=== PATIENT | female | born 1975 | race Caucasian/White ===

== ENCOUNTER → 2020-06-14 08:15 | Outpatient (CLI) | payer BC, SELFPAY ==
[2020-06-10 08:29] VITALS: BMI 23.0
--- NOTE | 2020-06-14 08:16 | CT_ITS ---
STUDY: CT ABDOMEN AND PELVIS WITH CONTRAST REASON FOR EXAM: Female, 45 years old. FREQUENT URINATION, PELVIC PAIN, BOWEL CHANGES X 6 WEEKS RADIATION DOSAGE (If Supplied By Facility): CTDIvol = ( 10.58 ) mGy, DLP = ( 691.09 ) mGycm TECHNIQUE: Transaxial images were obtained from the dome of the diaphragm to the symphysis pubis with oral contrast. 100 CC ISOVUE 300, READI-CAT ORAL CONTRAST was administered. Sagittal and coronal images were reconstructed. Individualized dose optimization techniques were used for this CT. COMPARISON: None. FINDINGS: The visualized lung bases are unremarkable. The visualized portions of the heart are within normal limits. Normal liver. Normal gallbladder and extrahepatic biliary system. Normal spleen. Normal pancreas. Normal bilateral adrenal glands. Normal right kidney. Normal left kidney. Normal visualized stomach. Normal small intestine. Large amount of fecal material is seen in the colon. The appendix is visualized and appears normal. Normal abdominal aorta. Normal inferior vena cava. Normal retroperitoneum. Normal urinary bladder. Follicles are seen in both ovaries. There is a 3.7 centimeters x 2.9 cm round hypodensity in the cervix. This may represent fibroid. The uterus is retroverted. Clinical correlation is recommended. Normal abdominal wall. Normal osseous structures. CT/Abdomen/Pelvis WITH Contrast IMPRESSION: 3.7 cm x 2.9 cm rounded soft tissue density in the cervical region of the cervix. This may represent a fibroid. A neoplastic process cannot be ruled out. Clinical correlation is recommended. Electronically Signed: Ashish Jacobson, at 12:30 EDT , Service support ,
== END ==
LOC: CT 08:16
PROVIDERS: PCP Nurse Practitioner Family; Referring Provider Internal Medicine Medical Oncology; Visit Provider Internal Medicine Medical Oncology
DX: R10.9 Unspecified abdominal pain (principal); R93.89 Abnormal findings on diagnostic imaging of other specified body structures; R42 Dizziness and giddiness; E03.9 Hypothyroidism, unspecified
CPT/HCPCS: 74177; Q9967

== ENCOUNTER → 2020-06-18 09:53 | Outpatient (CLI) | payer BC, SELFPAY ==
[2020-06-10 08:29] VITALS: BMI 23.0
--- NOTE | 2020-06-18 09:54 | ECHODONC_ITS ---
Reason For Study: DIZZINESS Procedure This was a 2D Doppler, Color Flow transthoracic echocardiogram. Myocardial strain analysis was performed in this exam to aid in the assessment of cardiac function. Exam performed in department. Left Ventricle Normal LV size. Left ventricular systolic function is normal. The estimated ejection fraction is 55 %. No regional wall motion abnormalities noted. Right Ventricle Normal RV size. Normal systolic function. Atria Normal left atrium. Normal right atrium. Mitral Valve Normal mitral valve. Tricuspid Valve Normal tricuspid valve. Mild (1+) tricuspid valve insufficiency. Pulmonary artery systolic pressure is 15 mmHg. Aortic Valve Normal aortic valve. Trisinus/trileaflet aortic valve. Pulmonic Valve Normal pulmonic valve. Great Vessels Normal aortic root. The pulmonary artery is normal size. Normal inferior vena cava. Pericardium/Pleural No pericardial effusion. MMode/2D Measurements & Calculations LVIDd: 4.3 cm IVSd: 0.66 cm Ao root diam: 2.6 cm LVIDs: 3.1 cm LVPWd: 0.60 cm RVDd: 3.4 cm FS: 27.1 % LAV(MOD-bp): 31.5 ml LA A4 area: 13.6 cm2 LA dimension(2D): 2.7 cm LAV(MOD-bp) Indexed: 20.7 ml/m2 LAV(MOD-sp2): 29.1 ml LAV(MOD-sp4): 32.1 ml RA A4 area: 9.4 cm2 Time Measurements MV dec time: 0.24 sec Doppler Measurements & Calculations MV E max adebayo: 68.3 cm/sec Lat Peak E' Adebayo: 14.3 cm/sec Med Peak E' Adebayo: 12.9 cm/sec MV A max adebayo: 40.5 cm/sec E/E' lat: 4.8 E/E' med: 5.3 MV E/A: 1.7 Ao V2 max: 114.8 cm/sec LV V1 max: 97.2 cm/sec PA V2 max: 95.2 cm/sec Ao max P.3 mmHg LV V1 max P.8 mmHg TR max adebayo: 166.9 cm/sec TR max P.3 mmHg Interpretation Summary Normal LV size. Left ventricular systolic function is normal. The estimated ejection fraction is 55 %. Mild (1+) tricuspid valve insufficiency. The global longitudinal strain is normal. The global longitudinal strain = -20.5 % (normal). Ordering Physician: Haim Nye Referring Physician: OSVALDO DE LA FUENTE Performed By: Virginia Vo, RAJATCS, RVT
--- NOTE | 2020-06-18 09:54 | EKGRS_ITS ---
Test Reason : PRE OP Blood Pressure : / mmHG Vent. Rate : 062 BPM Atrial Rate : 062 BPM P-R Int : 112 ms QRS Dur : 082 ms QT Int : 384 ms P-R-T Axes : 045 063 070 degrees QTc Int : 389 ms Normal sinus rhythm Nonspecific T wave abnormality Abnormal ECG Confirmed by ALEX GARCIA, BRIANNA ([id number]), publishing editor ONESIMO ZAMUDIO ([id number]) on 06/20/2020 11:35:48 AM Referred By: Haim Nye Confirmed By:BRIANNA JOHNSON MD
== END ==
LOC: CVS 09:54
PROVIDERS: PCP Nurse Practitioner Family; Referring Provider Internal Medicine Medical Oncology; Visit Provider Internal Medicine Medical Oncology
DX: R42 Dizziness and giddiness (principal); R10.9 Unspecified abdominal pain
CPT/HCPCS: 93005; 93306; 93356

== ENCOUNTER 2020-06-26 08:23 | Day surgery (SDC) | payer BC, SELFPAY ==
--- NOTE | 2020-06-18 01:14 | HP_ITS ---
Intake Vital Signs 06/18/20 BMI 23.0 06/18/20 Height 5 ft 1 in 06/18/20 Weight: 123 lb 8 oz 06/18/20 BMI 23.3 06/18/20 BP 94/61 06/18/20 Blood Pressure Location Rt brachial 06/18/20 Position Sitting 06/18/20 Respiration 18 06/18/20 Pulse 82 06/18/20 Pulse Source Monitor 06/18/20 Temp 97.8 F 06/18/20 Temp Source Temporal 06/18/20 Pulse Oximetry (%) 97 06/18/20 Oxygen Delivery Method room air Intake Visit Reasons: Upper & Lower Scope Chief Complaint: positive hemoccult stool/EGD and C-Scope consult Certified Anesthesiologist Assistant Required: No Accompanied by: Is patient in pain?: Yes Allergies latex Allergy (Verified 06/18/20 13:05) Swelling Medications Multivitamins,Therapeutic [Multivitamin] 1 tab PO DAILY 06/04/20 [History Confirmed 06/18/20] Cholecalciferol (Vitamin D3) [Vitamin D3] 5,000 unit PO DAILY 06/10/20 [History Confirmed 06/18/20] Duloxetine Hcl [Cymbalta] 30 mg PO DAILY 06/10/20 [History Confirmed 06/18/20] Erenumab-Aooe [Aimovig Autoinjector] 70 mg SQ QMONTH 06/10/20 [History Confirmed 06/18/20] Levothyroxine [Synthroid] 25 mcg PO DAILY 06/10/20 [History Confirmed 06/18/20] Magnesium 200 mg PO DAILY 06/10/20 [History Confirmed 06/18/20] PFSH Medical History Hematest positive stools (Acute) Hypothyroidism (Acute) Migraine headache (Acute) Mononucleosis (Acute) Surgical History No history of previous surgery (Acute) Family History Father Abuse, drug or alcohol Depression Grandmother Heart disease MATERNAL Osteoarthritis PATERNAL Mother Depression Asthma Sister Depression Aunt Depression MATERNAL Grandfather Diabetes PATERNAL Lung cancer PATERNAL Grandfather Lung cancer MATERNAL Social History (Updated 09/01/20 @ 13:[address] Amadou Malik MD) Smoking Status: Never smoker alcohol intake: never substance use type: marijuana HPI HPI Surgical H&P: Yes HPI: MATEUSZ SEAY, is a 45 F who presents to the office today for Upper and lower endoscopy. Patient has had Hemoccult tests that were positive x3. She has been having significant nausea and some vomiting. She is also been complaining of left lower quadrant abdominal pain. 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 She has been on Xarelto for short period of time but this is been discussed continued. She says for the last 6 weeks she just has not been feeling well she has been weak she is been having dizzy spells and her associated nausea. She reports that she has had tumor markers tested but these have been negative. Recently she has had a CAT scan of the abdomen and pelvis which showed a 3.7 x 2.9 round hypodensity in the cervix which may represent either a fibroid or possibly malignancy. ROS General General: Yes weight change and fatigue; no appetite, colon cancer, breast cancer or weakness HEENT HEENT: No difficulty swallowing, eye injury, eye surgery, swollen glands or hoarseness Endo Endocrine: Yes thyroid disease; no diabetes mellitus, thyroid cancer, Hair loss, heat intolerance or cold intolerance Skin Skin: No rash or changing moles Breast Breast: No left breast lump, right breast lump, nipple discharge, breast pain, abnormal mammogram, abnormal US or breast enlargement Musc Musculoskeletal: No back problems, arthritis, rheumatoid arthritis, gout or joint pain Cardio Cardiovascular: Yes murmur; no pacemaker, heart disease, atrial fibrillation, high blood pressure, heart attack, heart stent, palpitations, shortness of breat with exertion or chest pain Psych Psychiatric: No depression, anxiety or hearing voices Resp Respiratory: Yes shortness of breath, No sleep apnea, No cough, No COPD, No asthma, No emphysema, No wheezing Gastro Gastrointestinal: Yes abdominal pain, Yes nausea or vomiting, Yes diarrhea, Yes constipation, Yes blood in stool, Yes acid reflux, No hemorrhoids, No ulcers, No gallbladder problem, No black,tarry stools Alexandr Hematologic: No blood thinners, No blood disorders, Yes bleeding, No anemia, No blood clots Neuro Neurologic: No system reviewed and no additional complaints, except as docu, No as per HPI, No abnormal walking, No abnormal hearing, No abnormal movements, No abnormal speech, No behavioral changes, No burning sensations, No confusion, No seizure-like activity, No unsteadiness, No dizziness, No localized weakness, No frequent falls, No headache(s), No lack of coordination, No loss of vision, No memory loss, No numbness, No other visual disturbances, No radiating pain, No restless legs, No sensory deficit, No fainting, No tingling, No tremor(s), No weakness, No other Exam Const General: no acute distress, well developed, well hydrated Orientation: oriented to person, oriented to place, oriented to time [facility] Head: normocephalic, atraumatic Ears: external ears normal Mouth: moist mucous membranes Eyes Sclera: sclerae normal Pupils: normal by confrontation Neck Neck: no lymphadenopathy noted Neck mass: No Thyroid: thyroid normal, symmetrical Chest Chest palpation & inspection: normal inspection of the chest Breast Palpation: No nipple discharge Resp Effort & Inspection: normal respiratory effort Auscultation: clear to auscultation bilaterally Percussion: percussion normal Cardio Rate: regular rate Rhythm: regular rhythm Heart Sounds: murmur GI Palpation: soft, no hepatosplenomegaly, no masses, nontender Rectal Exam: other Other: Rectal exam deferred. Extrem General: normal to inspection, no clubbing, cyanosis or edema Assessment & Plan Problems 1. Heme positive stool R19.5 2. Nausea R11.0 3. Weight loss R63.4 4. Dizziness R42 Plan I have discussed the above with the patient. I have offered the patient colonoscopy As well as an EGD for evaluation. I have explained the risks/benefits of the procedure and described the procedure. I have discussed the risks with the patient, including but not limited to: infection, bleeding, perforation of the GI tract requiring emergency surgery, inability to complete the procedure, injury to any internal organs, complications of anesthesia, etc. - the patient understands and agrees to proceed. I have answered all the patient's questions to the patient's satisfaction and the patient has no further questions. The patient has been given instructions for the colon cleansing preparation. Coding Level of Care Code Off vis,new,level 3 Diagnoses Heme positive stool R19.5 Nausea R11.0 Weight loss R63.4 Dizziness R42 COVID (Procedure Consent) Procedure Criteria Procedure Criteria: Yes Elective The surgeon/proceduralist and patient have discussed in detail the risk of exposure to and/or potential harm posed by the COVID-19 virus with having a surgery/procedure at this time versus the risk of? delaying the surgery/procedure. It is not possible to know either the risk of delaying the surgery or procedure or chance of getting an infection with perfect accuracy, but a joint decision was made between the patient and the surgeon/proceduralist ?to proceed at this time with the scheduled surgery/procedure as indicated on the consent form. 06/18/20 1314 <Electronically signed by Amadou ansari MD> Date _ Amadou Malik MD I have re-examined the patient. There are no clinical changes since date of exam.
[2020-06-18 13:06] VITALS: BMI 23.0
[2020-06-19 13:30] VITALS: BMI 23.1
[2020-06-26 08:49] VITALS: BP 104/74; PULSE 89; RESP 16; TEMP 36.8; O2SAT 99; BMI 22.5
[2020-06-26] MEDS: Lactated Ringers 1,000 ML 100 ML IV (09:01)
[2020-06-26 09:02] LABS: Internal QC Validated? YES +Cl - CLEAR BKGD; Pregnancy, Urine Negative Negative
--- NOTE | 2020-06-26 09:30 | IMM_PTH ---
PATIENT: MATEUSZ SEAY LOC: EN U#:[id number] AGE/SX: 45/F ROOM: RE06/26/[address]: Dr. Amadou Malik MD : 1975 BED: DIS: 06/26/2020 SPEC #: [id number] RECD: 06/26/20 13:32 STATUS: TRELL REQ #: [id number] LEV: 06/26/20 09:[address]: Amadou Malik DEPT: IMMUNOHISTOCHEMISTRY RECD BY: Roslyn Gutierrez ENTERED: 06/26/20 13:33 SP TYPE: IMMUNO OTHR DR: Cindy Guzman, NIGHT SUPERVISOR-C Tissues: Stomach, NOS Procedures: H Pylori (initial) PHYSICIAN & INSTITUTION [place] [id number] SPECIMEN INFORMATION: Tissue Source: Antrum biopsy Clinical Info: Heme-positive stool, nausea, weight loss Specimen Number: [id number] CPT code: 54881 METHODOLOGY: Deparaffinized sections of prefer/formalin-fixed tissue or PAP/DQ stained slides are incubated with monoclonal/polyclonal antibodies/oligonucleotide probes. Localization is made via biotin free immunoperoxidase method. Appropriate controls are performed and reacted as expected. Results on target cell population are indicated in the following table: RESULTS: ANTIBODY / CLONE RESULT H Pylori (polyclonal) negative These tests were developed and their performance characteristics determined by [facility]. They may not have been cleared or approved by the U.S. Food and Drug Administration. The FDA has determined that such clearance or approval is not necessary. INTERPRETATION: Antrum biopsy: Negative for Helicobacter pylori organisms. AM:derrek 06/27/20
--- NOTE | 2020-06-26 09:30 | COLBX_PTH ---
PATIENT: MATEUSZ SEAY LOC: EN U#:[id number] AGE/SX: 45/F ROOM: RE06/26/[address]: Dr. Amadou Malik MD : 1975 BED: DIS: 06/26/2020 SPEC #: [id number] RECD: 06/26/20 10:05 STATUS: TRELL ZACH #: [id number] LEV: 06/26/20 09:[address]: Amadou Malik DEPT: SURGICAL PATHOLOGY RECD BY: April Baltazar ENTERED: 06/26/20 13:30 SP TYPE: COLON BX OTHR DR: Cindy Guzman, GUARD ENTRANCE REGISTRAR-C Tissues: Gastric mucous membrane Procedures: Surgery Specimen Level IV HEADER OPERATION: Colonoscopy, EGD ([facility] [place]) PRE-OP DIAGNOSIS: Heme-positive stool, nausea, weight loss TISSUE SUBMITTED: Antrum biopsy for histo and H. pylori MICROSCOPIC DIAGNOSIS Gastric antrum, biopsy: Mild chronic gastritis. See comment. AM:derrek 06/27/20 COMMENT The results of immunohistochemistry for Helicobacter pylori will be reported separately ([id number]). MICROSCOPIC DESCRIPTION Slides are reviewed. GROSS DESCRIPTION Received in fixative is one container labeled with the patient's name and designated antrum biopsy. The specimen consists of one irregular fragment of light smith soft tissue that measures 0.5 x 0.5 x 0.1 cm. The specimen is totally submitted in one cassette. / AM:derrek 06/26/20 TC:3 CPT: 33224
[2020-06-26 09:40] VITALS: BP 104/74; BP 90/43; PULSE 81; RESP 16; TEMP 36.6; O2SAT 100
--- NOTE | 2020-06-26 09:40 | OP.EGD_ITS ---
Patient Name: Shanice Soares Procedure Date: 06/26/2020 9:08 AM Date of : 1975 Age: 45 Procedure: Upper GI endoscopy Indications: Abdominal pain in the left lower quadrant, Heme positive stool, Nausea with vomiting Providers: Amadou Malik MD Referring MD: Amadou Malik MD Medicines: See the Anesthesia note for documentation of the administered medications Patient Profile: This is a 45 year old female. Refer to note in patient chart for documentation of history and physical. Complications: No immediate complications. Procedure: Pre-Anesthesia Assessment: - Prior to the procedure, a History and Physical was performed, and patient medications and allergies were reviewed. The patient's tolerance of previous anesthesia was also reviewed. The risks and benefits of the procedure and the sedation options and risks were discussed with the patient. All questions were answered, and informed consent was obtained. Prior Anticoagulants: The patient has taken no previous anticoagulant or antiplatelet agents. ASA Grade Assessment: II - A patient with mild systemic disease. After reviewing the risks and benefits, the patient was deemed in satisfactory condition to undergo the procedure. After obtaining informed consent, the endoscope was passed under direct vision. Throughout the procedure, the patient's blood pressure, pulse, and oxygen saturations were monitored continuously. The Endoscope was introduced through the mouth, and advanced to the second part of duodenum. The upper GI endoscopy was accomplished without difficulty. The patient tolerated the procedure well. Scope In: 9:17:27 AM Scope Out: 9:19:44 AM Total Procedure Duration Time 0 hours 2 minutes 17 seconds Findings: The Z-line was regular and was found 40 cm from the incisors. No biopsies or other specimens were collected for this exam. Localized mildly erythematous mucosa without bleeding was found in the prepyloric region of the stomach. Biopsies were taken with a cold forceps for Helicobacter pylori testing. The examined duodenum was normal. No biopsies or other specimens were collected for this exam. Impression: - Z-line regular, 40 cm from the incisors. No specimens collected. - Erythematous mucosa in the prepyloric region of the stomach. Biopsied. - Normal examined duodenum. No specimens collected. Recommendation: - Discharge patient to home. - Resume previous diet. - Continue present medications. - Await pathology results. - Repeat upper endoscopy (date not yet determined) for surveillance. - Return to primary care physician in 1 week. Procedure Code(s): --- Professional --- 55587, Esophagogastroduodenoscopy, flexible, transoral; with biopsy, single or multiple Diagnosis Code(s): --- Professional --- K31.89, Other diseases of stomach and duodenum R10.32, Left lower quadrant pain R19.5, Other fecal abnormalities R11.2, Nausea with vomiting, unspecified CPT copyright 2017 [employer]. All rights reserved. The codes documented in this report are preliminary and upon surgical assistant review may be revised to meet current compliance requirements. MD Amadou Schreiber MD 06/26/2020 9:40:12 AM This report has been signed electronically. Number of Addenda: 0 Note Initiated On: 06/26/2020 9:08 AM
--- NOTE | 2020-06-26 09:40 | OP.CCLET_ITS ---
06/26/2020 Graciela Akers Re : Upper GI endoscopy procedure for Shanice Hartdomo Guzman This procedure was performed on Friday, June 26, 2020. My impressions and recommendations are as follows: Impressions : - Z-line regular, 40 cm from the incisors. No specimens collected. - Erythematous mucosa in the prepyloric region of the stomach. Biopsied. - Normal examined duodenum. No specimens collected. Recommendations : - Discharge patient to home. - Resume previous diet. - Continue present medications. - Await pathology results. - Repeat upper endoscopy (date not yet determined) for surveillance. - Return to primary care physician in 1 week. My findings are described in the full procedure note, which is enclosed. If I can be of further assistance, please feel free to contact me at Doctor phone number(s): , Fax: [phone], Work: . Sincerely, MD Amadou Schreiber MD 06/26/2020 9:40:12 AM This report has been signed electronically.
--- NOTE | 2020-06-26 09:42 | OP.COLON_ITS ---
Patient Name: Shanice Soares Procedure Date: 06/26/2020 9:08 AM Date of : 1975 Age: 45 Procedure: Colonoscopy Indications: Abdominal pain in the left lower quadrant, Heme positive stool Providers: Amadou Malik MD Referring MD: Amadou Malik MD Medicines: See the Anesthesia note for documentation of the administered medications Patient Profile: This is a 45 year old female. Refer to note in patient chart for documentation of history and physical. Last Colonoscopy: none. The patient's first colonoscopy is today. Complications: No immediate complications. Procedure: Pre-Anesthesia Assessment: - Prior to the procedure, a History and Physical was performed, and patient medications and allergies were reviewed. The patient's tolerance of previous anesthesia was also reviewed. The risks and benefits of the procedure and the sedation options and risks were discussed with the patient. All questions were answered, and informed consent was obtained. Prior Anticoagulants: The patient has taken no previous anticoagulant or antiplatelet agents. ASA Grade Assessment: II - A patient with mild systemic disease. After reviewing the risks and benefits, the patient was deemed in satisfactory condition to undergo the procedure. After I obtained informed consent, the scope was passed under direct vision. Throughout the procedure, the patient's blood pressure, pulse, and oxygen saturations were monitored continuously. The adult colonoscope was introduced through the anus and advanced to 3 cm into the ileum. The colonoscopy was performed without difficulty. The patient tolerated the procedure well. The quality of the bowel preparation was good. Scope In: 9:21:53 AM Scope Withdrawal Time 0 hours 6 minutes 3 seconds Scope Out: 9:35:59 AM Total Procedure Duration Time 0 hours 14 minutes 6 seconds Findings: Non-bleeding internal hemorrhoids were found during retroflexion. The hemorrhoids were mild and small. The terminal ileum appeared normal. No biopsies or other specimens were collected for this exam. The exam was otherwise without abnormality. Impression: - Non-bleeding internal hemorrhoids. - The examined portion of the ileum was normal. No specimens collected. - The examination was otherwise normal. Recommendation: - Discharge patient to home. - Resume previous diet. - Continue present medications. - Repeat colonoscopy in 10 years for screening purposes. - Return to primary care physician (date not yet determined). Procedure Code(s): --- Professional --- 12516, Colonoscopy, flexible; diagnostic, including collection of specimen(s) by brushing or washing, when performed (separate procedure) Diagnosis Code(s): --- Professional --- K64.8, Other hemorrhoids R10.32, Left lower quadrant pain R19.5, Other fecal abnormalities CPT copyright 2017 [employer]. All rights reserved. The codes documented in this report are preliminary and upon furnace erector review may be revised to meet current compliance requirements. MD Amadou Schreiber MD 06/26/2020 9:42:38 AM This report has been signed electronically. Number of Addenda: 0 Note Initiated On: 06/26/2020 9:08 AM
--- NOTE | 2020-06-26 09:43 | OP.CCLET_ITS ---
06/26/2020 Graciela Akers Re : Colonoscopy procedure for Shanice Hartr Thomas This procedure was performed on Friday, June 26, 2020. My impressions and recommendations are as follows: Impressions : - Non-bleeding internal hemorrhoids. - The examined portion of the ileum was normal. No specimens collected. - The examination was otherwise normal. Recommendations : - Discharge patient to home. - Resume previous diet. - Continue present medications. - Repeat colonoscopy in 10 years for screening purposes. - Return to primary care physician (date not yet determined). My findings are described in the full procedure note, which is enclosed. If I can be of further assistance, please feel free to contact me at Doctor phone number(s): , Fax: [phone], Work: . Sincerely, MD Amadou Schreiber MD 06/26/2020 9:42:38 AM This report has been signed electronically.
[2020-06-26 09:45] VITALS: BP 104/74; BP 94/48; PULSE 82; RESP 16; O2SAT 100
[2020-06-26 09:50] VITALS: BP 104/74; BP 94/45; PULSE 75; RESP 16; O2SAT 100
[2020-06-26 09:55] VITALS: BP 104/74; BP 92/57; PULSE 75; RESP 16; TEMP 36.7; O2SAT 98
== END 2020-06-26 10:32 | disposition home or self-care (01) ==
LOC: EN 08:24 → AC 08:25
PROVIDERS: Anesthesiology; PCP Nurse Practitioner Family; Referring Provider Surgery; Visit Provider Surgery
PROC: 0DJD8ZZ Inspection of Lower Intestinal Tract, Via Natural or Artificial Opening Endoscopic (ICD-10-PCS; CPT 45378; principal; 2020-06-26 09:25)
DX: K29.50 Unspecified chronic gastritis without bleeding (principal); R10.32 Left lower quadrant pain; K31.89 Other diseases of stomach and duodenum; R19.5 Other fecal abnormalities; R11.2 Nausea with vomiting, unspecified; Z79.01 Long term (current) use of anticoagulants; Z91.040 Latex allergy status; K64.8 Other hemorrhoids; R63.4 Abnormal weight loss; R42 Dizziness and giddiness
CPT/HCPCS: 43239; 45378; 81025; 87635; 88305; 88342; C9803; J7120; J1610; J2405; U0003

== ENCOUNTER 2024-11-21 09:12 | Outpatient (RCR) | payer BC, SELFPAY ==
--- NOTE | 2024-11-21 09:10 | BH.SGPN.GN ---
Behaviors/Verbalizations/Mental Status: [] Eye contact is good. Motor activity is appropriate. Appearance is casual. Speech is Appropriate. Mood is depressed and anxious. Affect is congruent. Thoughts are linear and logical. No evidence of psychosis. Reviewed daily check in sheet and no reports of suicidal ideations or intent. Client Response/Progress/Benefit: [] Pt participated at times during group discussions. Daily symptom tracker notes 12/20 for anxiety and depression. Today was her first day in IOP. States that she ? struggles with depression?. Reports her depression has been slowly worsening for the past several months. ? I just ignored it?. Recently mental health decompensated till the point that she struggled to get out of bed due to the depression. Reports sleeping to escape and cope. Last week ? it got so bad I had to go to the ER?. Reports that she ? wasn?t eating or sleeping?. ? I just shut down?. The group provided support and empathy which was beneficial. Will continue in [facility] to maintain safety, prevent decompensation, and increase healthy coping Narrative Note: []
--- NOTE | 2024-11-21 09:17 | BH.COMM ---
Communication Note Communication with Client Communication Note: Met with pt to complete initial paperwork and administer the CSSR-S screening and risk assessment. Pt is a mild risk as pt reports thoughts of within the last month, but pt reports they have gone away since her initial intake at [facility] on 11/14/24. Pt denies any history of suicide attempts, no self-harm history, and no report (past or present) of suicidal ideations. No access to weapons. Pt is future oriented. Discussed case with Dr. Saldana and pt will be admitted to [facility] tx with a diagnosis of MDD, recurrent severe without psychosis F 33.2
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
--- NOTE | 2024-11-21 09:21 | BH.MTP ---
Master Treatment Plan Patient Information Program Physician:: Dr. Gracie Saldana Primary Therapist:: Liliana GALINDO Psychiatric Diagnoses Psychiatric Diagnoses:: Major depressive disorder, recurrent, severe without psychosis F 33.2; Generalized anxiety disorder; ADD; History of bulimia Diagnosis Code(s):: F 33.2 Estimated LOS Estimated LOS (in weeks):: 6 Problem/Goal #1 Problem/Goal #1 Stated Goal:: Pt will decrease depressive symptoms, inappropriate guilt, worthlessness, and negative self-talk. Description of Barriers: Pt reports the political climate and world events is a major trigger for pt's worsening symptoms and pt recognizes she has to learn to accept this. Pt reports her ADD impacts her ability to function at work. Pt reports she is not able to talk about her mental health symptoms with her closest supports. Functional Impact: Pt is a 49-year-old female who was referred to [facility] tx by the social media content manager at [facility]. Pt was evaluated on 11/11/24 at [facility] due to having thoughts of and significant anxiety. Pt currently endorses a depressed mood with isolation, anhedonia, lack of motivation, hopelessness, worthlessness, guilt, low energy, and loss of appetite. Pt also reports symptoms of anxiety including ruminations, restlessness, lack of concentration, and racing thoughts. Pt's symptoms have been impacting her ability to work and function at home. Goal Relevant Strengths/Supports: Pt is motivated, has found therapy helpful in the past, and has positive supports in her life. Objectives Objective #1: Stated Objective: Pt will learn and utilize 2-3 healthy coping strategies to better manage depressive symptoms as shown by a decrease of DMS-5 symptoms for depression. Interventions: Through group and individual sessions, therapist will help pt identify triggers and warning signs of depression and guilt including emotional, physical, and behavioral changes. Therapist will teach pt various coping skills to manage symptoms and give pt tangible resources to use to regulate emotions. Therapist will use cognitive restructuring techniques and help pt gain awareness of negative thoughts that reinforce guilt and depression. Therapist will provide psychoeducation on maintenance cycles and help pt learn ways to break unhealthy maintenance cycles. Therapist will help pt incorporate behavioral activation and assist pt in setting SMART goals. Discharge Criteria: Pt will have met this goal when can report learning and using at least 2 coping skills to manage depressive symptoms and reduce isolation. Additionally, pt will have met this goal when pt's DSM-5 scores for depression decrease. Target Date: 01/02/25 Review Date: 12/19/24 Status: open Objective #2: Stated Objective: Pt will identify at least 2-3 negative self-talk messages used to reinforce negative core beliefs, worthlessness, and isolation and replace thoughts with balanced, realistic messages. Interventions: Therapist will help pt identify distorted, negative beliefs about self and replace with more realistic, affirmative messages. Therapist will use CBT and DBT to help pt increase insight to the connection between thoughts, emotions, and behaviors. Therapist will encourage pt to practice thought challenging. Discharge Criteria: Pt will have achieved this goal when can verbalize at least 2 cognitive distortions and effectively replace those thoughts with affirmative messages. Target Date: 01/02/25 Review Date: 12/19/24 Status: open Problem/Goal #2 Problem/Goal #2 Stated Goal:: Will reduce anxiety symptoms through increasing emotional regulation and distress tolerance skills Description of Barriers: Pt reports the political climate and world events is a major trigger for pt's worsening symptoms and pt recognizes she has to learn to accept this. Pt reports her ADD impacts her ability to function at work. Pt reports she is not able to talk about her mental health symptoms with her closest supports. Functional Impact: Pt is a 49-year-old female who was referred to [facility] tx by the social media content manager at [facility]. Pt was evaluated on 11/11/24 at [facility] due to having thoughts of and significant anxiety. Pt currently endorses a depressed mood with isolation, anhedonia, lack of motivation, hopelessness, worthlessness, guilt, low energy, and loss of appetite. Pt also reports symptoms of anxiety including ruminations, restlessness, lack of concentration, and racing thoughts. Pt's symptoms have been impacting her ability to work and function at home. Goal Relevant Strengths/Supports: Pt is motivated, has found therapy helpful in the past, and has positive supports in her life. Objectives Objective #1: Stated Objective: Pt will increase ability to manage stressors and anxiety by gaining 2-3 distress tolerance skills. Interventions: Through group and individual therapy, pt will learn various coping skills to help manage stress and anxiety. Therapist will utilize DBT distress tolerance skills to increase awareness and give pt tools to more effectively manage anxiety. Therapist will provide psychoeducation on emotional regulation and help pt identify unhealthy coping skills he wants to change. Discharge Criteria: Pt will have accomplished this goal when can report improved ability to manage stressors and identify at least 2 distress tolerance skills. Target Date: 01/02/25 Review Date: 12/19/24 Status: open Objective #2: Stated Objective: Pt will identify 2-3 anxiety triggers and 2 coping skills to use when feeling anxious or overwhelmed to manage anxiety as shown by reducing DSM-5 scores for anxiety Interventions: Therapist will provide education on anxiety, avoidance behaviors, and maintenance cycles. Therapist will help pt explore personal symptoms and warning signs of anxiety and irritability. Therapist will teach pt coping skills to improve emotional regulation, mindfulness, and distress tolerance to help pt cope with anxiety in the moment. Discharge Criteria: Pt will have accomplished this goal when she can identify at least 2 triggers and report using 2 coping skills to manage anxiety. Additionally, pt will have accomplished this goal AEB reduction of DSM-5 scores for anxiety. Target Date: 01/02/25 Review Date: 12/19/24 Status: open
--- NOTE | 2024-11-21 10:10 | BH.SGPN.GN ---
Behaviors/Verbalizations/Mental Status: []Eye contact is good. Motor activity is appropriate. Appearance is casual. Speech is Appropriate. Mood is anxious. Affect is congruent. Thoughts are linear and logical. No evidence of psychosis. Client Response/Progress/Benefit: [] Pt was engaged and participating throughout, providing input and taking notes. Participated in an interactive discussion on defining anxiety and identifying cognitive and physiological symptoms of anxiety. The group discussed the role of anxiety on isolation, avoidance, and how this emotion impacts their ability to start and complete activities/goals. Pt identified their physical/physiological signs of anxiety which includes: ?pulsing in veins?, nausea, and migraines. Benefited from increased awareness and insight on anxiety and its impact. Will continue in IOP to decrease anxious avoidance, increase healthy coping skills, and prevent decompensation. Narrative Note: []
--- NOTE | 2024-11-21 11:08 | BH.SGPN.GN ---
Behaviors/Verbalizations/Mental Status: []Pt alert and oriented, casually dressed and groomed. Eye contact good. Motor activity appropriate. Speech within normal limits. Affect congruent, mood anxious. Thoughts linear, logical, no signs of hallucinations or delusions. Client Response/Progress/Benefit: []Pt was an active participant AEB pt providing input and listening attentively to peers. Attentive during psychoeducation on mindfulness coping skills and their impact on reducing anxiety and improving overall mental health wellness. Group was able to identify self-soothing and mind-based coping skills which included: 5-senses, meditation, deep breathing, categories, thought challenging, categories, and progressive muscle relaxation. Pt also participated with peers in practicing mindfulness skills in session including deep breathing and PMR. Pt would like to work on 5-senses to manage anxiety. Appeared to benefit from increasing repertoire of anxiety reduction skills. Pt will continue in IOP tx to prevent decompensation, improve daily functioning, and reduce negative thinking patterns. Narrative Note: []
--- NOTE | 2024-11-23 09:05 | BH.SGPN.GN ---
Behaviors/Verbalizations/Mental Status: [] Pt alert and oriented, neatly dressed and groomed. Eye contact good. Motor activity restless. Speech within normal limits. Affect congruent, mood anxious and overwhelmed. Thoughts linear, logical, no signs of hallucinations or delusions. Reviewed pt?s symptom tracker, no risk for suicidal ideation, plan, or intent 11/23/24. Client Response/Progress/Benefit: []Pt was an active participant in group discussions. Attentive. Able to identify mental health wins including using opposite action to go to work in person, which pt reported was a good experience, and being able to give back and help someone which pt has not been able to do in a while due to her symptoms. Pt's stressor today is I was feeling really good when I left here and then I watched the news. Pt stated the news has been a significant trigger for her mental health decompensation. Pt stated pt is feeling overwhelmed this morning. Pt receptive to feedback from peers which pt reported was helpful. Progress noted, but pt's stress continues to be an issue. Benefited from group support, encouragement, and feedback. Will continue in IOP to prevent decompensation, improve daily functioning, and increase self-compassion. Narrative Note: []
--- NOTE | 2024-11-23 10:15 | BH.SGPN.GN ---
Behaviors/Verbalizations/Mental Status: [] Eye contact is good. Motor activity is appropriate. Appearance is casual. Speech is Appropriate. Mood is anxious. Affect is congruent. Thoughts are linear and logical. No evidence of psychosis. Client Response/Progress/Benefit: [] Pt was an active participant in group discussions. Attentive during psychoeducation on the 4 communication styles (Passive, Passive-Aggressive, Aggressive, and Assertive) and the obstacles to effective communication. Contributed during interactive discussion on the benefits of communicating effectively. Worked well with peers to identify the benefits and disadvantages to the different communication styles. Pt beleives that she is primarily Aggressive and assertive. According to pt she tends to hold things in for awhile and when she releases it presents as aggressive. Benefited from increased understanding of communication styles and how these can impact effective communication. Will continue in IOP to prevent decompensation, reduce negative thinking patterns, and improve daily functioning. Narrative Note: []
--- NOTE | 2024-11-23 11:10 | BH.SGPN.GN ---
Behaviors/Verbalizations/Mental Status: []Pt alert and oriented, casually dressed and groomed. Eye contact good. Motor activity appropriate. Speech within normal limits. Affect congruent, mood anxious. Thoughts linear, logical, no signs of hallucinations or delusions. Client Response/Progress/Benefit: [] Pt responded well to session AEB Pt listening attentively to others and providing input during group discussion on the pay offs and costs of the different communication styles. Pt able to connect how current communication style impacts mental health. Connected with peers? comments about importance of using assertive communication. Pt seemed to benefit from increasing awareness of healthy strategies to improve communication. Identified wanting to work on paraphrasing a conversation back to the individual to increase clarity. Will continue IOP tx to prevent decompensation, improve mood stability, and improve daily functioning. ? Narrative Note: []
--- NOTE | 2024-11-23 13:41 | BH.MDN ---
Multi-Disciplinary Note Note 30-min Individual: Time Started:: 12:10 Date: 11/23/24 Purpose of session/treatment goals addressed:: To gather information on pt's current stressors, symptoms, triggers, history, and tx goals. Another goal was to build rapport and provide emotional support. Eye Contact:: Good Motor Activity:: Appropriate Appearance:: Neat Speech:: Appropriate Mood:: Anxious and Depressed Affect:: Congruent Thoughts:: Racing and No evidence of hallucinations/delusions noted Staff Interventions:: rapport building, strengths perspective, treatment planning and goal setting Client Response:: Pt responded well to session, open to meeting with therapist. Pt reports she has been enjoying IOP so far pt told her I'm getting way more than I thought I would out of hearing other people's stories. Pt came to IOP due to worsening depressive symptoms over the past months and decompensation in her functioning. 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 Pt shared every day she struggles with the balance between wanting to preserve her mental health and wanting to be informed with the news. Pt stated she has been spiraling every time she watches the news lately because pt worries about her LGBTQ children and her child with autism. Pt reported she wants to figure out how to cope with that knowing I can't change it and I just have to cope. Pt shared losing her identity has been the most impactful to her worsening mental health. 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 As pt was talking about her current symptoms, triggers, and stressors, therapist helped pt gain insight to the judgmental language pt uses to describe herself and her emotions. Pt was receptive to learning more about dialectical thinking and self-compassion as modalities to help treat pt's symptoms. Pt stated that in the past reframing has been helpful for pt when she did therapy in the past. Risks/Concerns:: Pt denies any suicidal ideations, plan, or intent. Pt denies any thoughts of . Progress Toward Goals/Plan:: Pt's second day of IOP tx and pt reports so far she enjoys coming to IOP and the meetings with peers. Pt has had therapy in the past, but she currently has no providers. Pt's biggest symptoms currently are her depressive symptoms, however, pt feels her anxiety has been severe as well. Pt has identified tx goals today and will meet with therapist weekly. Pt will continue IOP tx to promote mood stability, reduce negative thinking patterns, and increase self-compassion. Time Stopped:: 12:45
--- NOTE | 2024-11-24 08:00 | BH.COMM ---
Communication Note Communication with Client Communication Note: Program psychiatrist was set to meet with patient on 11/22/24 however due to psychiatrist illness it was cancelled. Rescheduled the initial psych eval till 11/24/24. Unfortunately program psychiatrist remained ill and was unable to meet with pt. Unable to secure another psychiatrist to cover in short time frame. Consulted with program psychiatrist over the phone and recommends pt continue in IOP based on symptoms presented as w/o the program he will decompensate. Arrangements made for psychiatry coverage for next week. Pt aware and agreeable.
--- NOTE | 2024-11-24 09:00 | BH.SGPN.GN ---
Behaviors/Verbalizations/Mental Status: [] Eye contact is good. Motor activity is appropriate. Appearance is casual. Speech is Appropriate. Mood is depressed and anxious. Affect is congruent. Thoughts are linear and logical. No evidence of psychosis. Reviewed daily check in sheet and no reports of suicidal ideations or intent Client Response/Progress/Benefit: [] Pt was an active participant in group discussions. Attentive. Daily symptom tracker notes 12/20 for depression and anxiety. Feels overwhelmed. She reported a decompensation yesterday which led to decreased energy and motivation. Placing unrealistic expectations on herself which led to feelings of being a failure. Strong urge to isolation and avoid however choose to utilize opposite-action rather than sleep. Proud of herself and able to see how implementing small healthy habits and choices can impact her whole day. Progress noted. Benefited from gropu support, encouragment, and feedback. Will continue in IOP to maintain safety, increase healthy coping, and improve functioning to return to work. Narrative Note: []
--- NOTE | 2024-11-24 10:15 | BH.SGPN.GN ---
Behaviors/Verbalizations/Mental Status: [] Eye contact is good. Motor activity is appropriate. Appearance is casual. Speech is Appropriate. Mood is anxious. Affect is congruent. Thoughts are linear and logical. No evidence of psychosis. Client Response/Progress/Benefit: [] Pt receptive to session AEB listening attentively to others and taking notes. Pt attentive and contributed throughout psychoeducation on the cognitive triangle and maintenance cycles. Pt engaged during group discussion reviewing the impact of daily activities and behaviors in either reinforcing unhealthy maintenance cycles and depression or assisting in reducing symptoms (?down? vs ?up? activities). Pt participated during interactive discussion in which pt identified common up activities (put on clean clothes, showering, walks, yoga, meditation, eating healthy) and down activities (doom scrolling, staying in bed, substances, self-loathing, not showering, cancelling plans). Appeared to benefit from increased awareness of current behaviors and impact these have on mental health. Will continue IOP to prevent decompensation, increase healthy coping, and improve functioning. Narrative Note: []
--- NOTE | 2024-11-24 11:10 | BH.SGPN.GN ---
Behaviors/Verbalizations/Mental Status: []Pt alert and oriented, neatly dressed and groomed. Eye contact good. Motor activity appropriate. Speech within normal limits. Affect congruent, mood anxious. Thoughts linear, logical, no signs of hallucinations or delusions. Client Response/Progress/Benefit: [] Pt responded well to session, attentive and engaged in group discussions and activity. Actively engaged in continued discussion about up activities and down activities. Active participant as group discussed values and the benefits that knowing one's values can have on one's mental health. Pt completed worksheet on values and set a goal to work on her value of family by planning to go out to eat with her this weekend. Benefited from increased awareness of their personal values and how incorporating their values into behavioral activation goals can positively impact mental health. Will continue in IOP to prevent decompensation, gain healthy coping skills, and reduce negative thinking patterns. Narrative Note: []
--- NOTE | 2024-11-28 09:05 | BH.SGPN.GN ---
Behaviors/Verbalizations/Mental Status: [] Eye contact is good. Motor activity is appropriate. Appearance is casual. Speech is Appropriate. Mood is depressed. Affect is congruent. Thoughts are linear and logical. No evidence of psychosis. Reviewed daily check in sheet and no reports of suicidal ideations or intent. Client Response/Progress/Benefit: [] Pt was an active participant in group discussion. Attentive. Daily symptom tracker notes 3/5 for depression, 2/5 for anxiety, and 4/5 for agitation. Shared with the group several mental health wins including returning to work this past week. Shared a little about her job, reasons for her anxiety, and the strategies she used. Overall believes it was a success. I got through it, however it wiped me out. Reports fatigue for the past couple days which led to urges to lay in bed and smoke weed. She was able to challenge and reframe these thoughts. I thought about what I would do if I called off today and it wasn't anything helpful for me. She discussed a family conflict which has contributed to her stress. She utilized assertive communication yesterday rather than ignoring or being passive. Progress noted. Benefited from group support, encouragement, and feedback. Will continue in IOP to prevent decompensation, increase healthy coping, and improve communication. Narrative Note: []
--- NOTE | 2024-11-28 10:15 | BH.SGPN.GN ---
Behaviors/Verbalizations/Mental Status: []Client alert and oriented, casually dressed and groomed. Eye contact good. Motor activity appropriate. Speech within normal limits. Affect congruent, mood anxious, Thoughts linear, logical, no signs of hallucinations or delusions Client Response/Progress/Benefit: [] pt responded well to session, contributing to discussion and engaged during the activity. Group identified the benefits of change which included: personal growth, increased confidence, improving mental health, progressing, and becoming resilient. Worked with the group to identify barriers to change and pt identified personal barriers as lack of self-confidence, anxiety, and fear of judgement/embarrassment. pt participated along with group in activity where they discussed the emotions related to change. Benefited from increased awareness and understanding of emotions, benefits, and barriers related to change. Will continue IOP tx to prevent decompensation, gain healthy coping skills, and improve daily functioning. Narrative Note: []
--- NOTE | 2024-11-28 11:10 | BH.SGPN.GN ---
Behaviors/Verbalizations/Mental Status: []Client alert and oriented, neatly dressed and groomed. Eye contact good. Motor activity appropriate. Speech within normal limits. Affect congruent, mood anxious. Thoughts linear, logical, no signs of hallucinations or delusions. Client Response/Progress/Benefit: [] Pt responded well to session, attentive throughout. Did well to actively listen and contributed when prompted as group worked to review change process. Pt worked with group to relate the strategies used to overcome barriers in the various stages of change and common emotions throughout. Pt identified a change they would like to make is ?Prioritizing my mental health and using tools I wouldn't normally.? Pt identified currently being in the preparation stage for this change. Pt said continuing IOP as one thing she can do to help pt get to the next stage. Appeared to benefit from identifying a change they want and how to progress. Pt will continue IOP tx to prevent decompensation, combat distorted thought patterns, and improve self-compassion. Narrative Note: []
--- NOTE | 2024-11-29 09:00 | BH.SGPN.GN ---
Behaviors/Verbalizations/Mental Status: []Pt alert and oriented, neatly dressed and groomed. Eye contact good. Motor activity appropriate. Speech within normal limits. Affect congruent, mood anxious and optimistic. Thoughts linear, logical, no signs of hallucinations or delusions. Reviewed pt?s symptom tracker, no risk for suicidal ideation, plan, or intent 11/29/24 Client Response/Progress/Benefit: []Pt was an active participant in group discussions. Attentive. Able to identify mental health wins including using opposite action and self-talk to accomplish work-related tasks yesterday and having quality time with her mom and sisters yesterday. Pt's stressor today is she had to leave her mother and sisters yesterday earlier than she wanted, which made pt feel guilty. Pt receptive to feedback from therapist on using self-compassion lens. Pt stated she is feeling cautiously optimistic this morning as pt has moments where she feels better, but she is anxious to get too excited. Pt receptive to feedback from peers which pt reported was helpful. Progress noted. Benefited from group support, encouragement, and feedback. Will continue in IOP to prevent decompensation, gain healthy coping skills, and reduce negative thinking patterns. Narrative Note: []
--- NOTE | 2024-11-29 10:10 | BH.NA ---
Physical Data Vital Signs Pulse Rate: 77 Blood Pressure: 127/74 Height/Weight Height: 1.55 m Weight:: 52.163 kg Weight in Pounds: 115.0 lbs Current Medication Compliance Medication Compliance Do you take your medication as prescribed?: Yes Nutritional History Appetite Nutritional Instructions: Describe your appetite:: Fair Additional nutritional information:: Client states she has lost about 10-15lbs due to lack of appetite, but states she is gaining a little weight back. Functional Assessment Sleep Pattern Describe any problems with sleeping: Client states she sleeps about 8 hours per day. Sensory/Communication Assess Vision Problems Do you have any vision problems?: Glasses Communication Problems Do you have difficulty understanding what people are saying?: No Medical Problems/History Neurological Conditions Neurological: Other (See comments) (migraines) Metabolic Conditions Metabolic: Hypothyroidism Family History Family History Father Abuse, drug or alcohol Depression Grandmother Heart disease Osteoarthritis Mother Depression Asthma Sister Depression Aunt Depression Grandfather Diabetes Lung cancer Grandfather Lung cancer Additional History Additional comments:: thrombosis of ovarian vein, 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 If so, list type and date:: Yes (hysterectomy, one ovary removed due to torsion) Substance Abuse Substance Abuse Please describe substance abuse in the last 30 days:: Client denies tobacco or alcohol use. Client states she has been vaping and smoking marijuana daily for the past several months. Client states she drinks 1 cup of coffee per day. Mental Status Summary Mental Status Significant Findings/Observations on Appearance and Mood:: Client is alert and oriented x 4. Client is cooperative with assessment. Client makes good eye contact. Client's voice has normal rate and volume. Client has an appropriate affect. Client makes logical associations and has normal processing. Client denies delusions/hallucinations. Client denies current SI, but does admit in the past she has had some SI with no plan or intent. Suicide Assessment Suicidal Ideation Are you currently or have you been suicidal in the past?: Yes Suicidal Intentional Rating Scale (SIRS): Suicidal thoughts (past) Physician Notification Past Psychiatric History MH Treatment Hx Past Psychiatric Medications:: Paxil, Zoloft, Prozac in the distant past- has been on Cymbalta about 10 years Age of first mental health symptoms: Client states she was 21 when she first took medication for depression/anxiety. Describe (age, circumstance, etc) any past hospitalizations: None. Current providers for mental health treatment (counselor, psychiatrist, correctional casework specialist, etc.): None. Fall Risk Assessment Age Age: Less than 60 Mental Status Mental Status: Willing & able to ask for assistance when needed Physical Status Physical Status: No problems Impairments Impairments: None Elimination Elimination: Continent AND independent Gait or Balance Gait or Balance: Walks independently Hx of Falls History of falls in the past 6 months: No known history Medications/Substances Psychotropics:: Antidepressants Medications/substances used within the past 24 hours or ordered to administer: 1-2 of the medications/substances listed above Total Score Total Points:: 1 RN Summary of Impressions Impressions Recommendations Impressions: Psychiatric Issues: 1. Major depressive disorder, recurrent, severe without psychosis 2. Generalized anxiety disorder 3. ADD 4. History of bulimia 5. Cluster B traits 6. Primary support, work issues 7. THC use disorder Level of Care How do the client's current symptoms and functional deficits support need for this level of care?: Client was referred to IOP after an ER visit to [facility] with feelings of depression. Client states she usually does have seasonal depression, but she has been depressed since about February 2024 and it has been a worse depression than she has had in the past. Client does admit she has had some intrusive thoughts about suicide in the past several months, but denies plan or intent. Client denies SI at this time. Client states she lost 10-15lbs from being depressed and unable to get out of bed or eat or drink. Client states she has had life stressors in the past several months, and the current political climate is also a stressor. Client reports decreased concentration and racing thoughts. IOP will promote gains and prevent further decompensation while providing social support and skills training.
--- NOTE | 2024-11-29 10:10 | BH.SGPN.GN ---
Behaviors/Verbalizations/Mental Status: []Pt alert and oriented, casually dressed and groomed. Eye contact good. Motor activity appropriate. Speech within normal limits. Affect congruent, mood anxious and depressed. Thoughts linear, logical, no signs of hallucinations or delusions. Client Response/Progress/Benefit: [] Pt took notes and contributed to group discussions. Attentive during psychoeducation on growth mindset. Participated during the activity. Interactive group discussion on growth mindset in which group verbalized their current fixed mindsets and how they affect their mental health. Pt shared common fixed mindset thoughts they have. These thoughts lead to feeling disheartened about self and the world, not reaching out to others for help, and self-criticism. Pt stated they have personally struggled with fixed thoughts causing them to avoid out of guilt. Pt benefited from increased awareness of growth mindset and fixed thoughts and how fixed thoughts impact their mental health. Will continue IOP tx to prevent decompensation, improve daily functioning, and promote mood stability. Narrative Note: []
[2024-11-29 10:40] VITALS: BP 127/74; PULSE 77
--- NOTE | 2024-11-29 11:10 | BH.SGPN.GN ---
Behaviors/Verbalizations/Mental Status: []Pt alert and oriented, casual dressed and groomed. Eye contact good. Motor activity appropriate. Speech within normal limits. Affect congruent, mood anxious. Thoughts linear, logical, no signs of hallucinations or delusions. Client Response/Progress/Benefit: []Pt was an active participant during activity and discussion. Pt did well to remain attentive and participate as group worked on identifying characteristics and benefits of adopting a growth mindset. Worked with fellow participants in reframing the example fixed thoughts into growth mindset thoughts. Pt worked on changing own fixed thought and reframed the thought to I can learn new things but I need to have supports and give myself masha and time. Pt also wants to work on dialectical thinking. Pt appeared to benefit from challenging own thoughts and engaging in the activity. Pt will continue IOP tx to reduce decrease distortions, improve distress tolerance, and prevent decompensation.
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
--- NOTE | 2024-11-29 12:48 | BH.DR.ITP ---
Initial Treatment Plan Patient Information Visit Information: ADMISSION DATE: EXPECTED LOS: 4-6 weeks Problems/Symptoms Problem #1:: Depression Symptom:: Sadness, hopelessness, worthlessness, guilt, biological disruption of appetite, low energy, decreased concentration, passive thoughts of Problem #2:: Anxiety Symptom:: Worry, rumination, avoidance, panic attack
--- NOTE | 2024-12-05 09:00 | BH.SGPN.GN ---
Behaviors/Verbalizations/Mental Status: []Pt alert and oriented, neatly dressed and groomed. Eye contact good. Motor activity appropriate. Speech within normal limits. Affect congruent, mood frustrated. Thoughts linear, logical, no signs of hallucinations or delusions. Reviewed pt?s symptom tracker, no risk for suicidal ideation, plan, or intent 12/05/24. Client Response/Progress/Benefit: [] Pt was an active participant in group discussions. Attentive. Able to identify mental health wins including allowing herself to have ?joyful movement? and navigating a difficult situation with her daughter differently than she would have in the past. ?Pt's stressor today is she continues to have headaches, and it makes it challenging for pt to accomplish tasks throughout her day. Receptive to feedback and tips from peers. Pt stated pt is feeling ?pissed off this morning. Pt receptive to feedback from peers which pt reported was helpful. Progress noted. Benefited from group support, encouragement, and feedback. Will continue in IOP to prevent decompensation, improve daily functioning, and increase distress tolerance skills. Narrative Note: []
--- NOTE | 2024-12-05 10:10 | BH.SGPN.GN ---
Behaviors/Verbalizations/Mental Status: [] Eye contact is good. Motor activity is appropriate. Appearance is casual. Speech within normal limits. Mood is anxious and depressed. Affect is congruent. Thoughts are linear and logical. No evidence of psychosis. Client Response/Progress/Benefit: [] Client was an active participant in group discussion and experiential activity. Attentive during psychoeducation on resilience. Participated in interactive discussion with peers on the definition of resilience. Group identified factors that impact resiliency which include; current mood, stress level, health, pain levels, sleep, and environment. Group also worked together to identify the benefits of being resilient and how it is related to mental health. Group believes resilience can increase adaptability, keep one moving towards goals, improve self-care, improve relationships, and decrease stress. Able to relate experiential activity of group juggle to topics of resilience. Benefited from increased awareness of resilience and the factors that contribute to building resilience. Will continue in IOP to prevent decompensation and further promote mood stability. Narrative Note: []
--- NOTE | 2024-12-05 11:10 | BH.SGPN.GN ---
Behaviors/Verbalizations/Mental Status: [] Client alert and oriented, casually dressed and groomed. Eye contact good. Motor activity appropriate. Speech within normal limits. Affect congruent, mood euthymic. Thoughts linear, logical, no signs of hallucinations or delusions Client Response/Progress/Benefit: [] Client responded well to session AEB completing the resilience worksheet provided. Client actively participated in the discussion and worked cooperatively with group to identify strategies to enhance each of the components discussed. Client reports belief they already use resilience trait of ?self awareness? Client discussed that they could work on taking decisive action. Client seemed to benefit from discussing strategies for improving personal resilience and identifying resilience traits client already possesses. Will continue IOP tx to increase overall functioning and prevent decompensation. Narrative Note: []
--- NOTE | 2024-12-05 15:30 | BH.MDN_ITS ---
Multi-Disciplinary Note Note 60-min Individual: Time Started:: 11:30 Date: 12/05/24 Purpose of session/treatment goals addressed:: To work on recognizing and challenging distortions as well as identifying aspects of self. Eye Contact:: Good Motor Activity:: Appropriate Appearance:: Casual Speech:: Appropriate Mood:: Anxious Affect:: Congruent Thoughts:: Racing and No evidence of hallucinations/delusions noted Staff Interventions:: thought challenging, CBT techniques, mindfulness ski lls, rapport building, strengths perspective and taught coping skills (dialectical thinking, self-compassion, self-reflection skills.) Client Response:: Pt responded well to session, open to meeting with therapist. Pt was sick last week and did not get an individual session, but she shared she is doing okay. Pt continues to feel overwhelmed by the political climate of the world, her family, and her work. Pt recognizes she is often very self-critical which then leads to procrastination and ultimately feeling more overwhelmed. One of pt's biggest problems when she started IOP was feeling like I don't know myself anymore. Pt receptive to working on self-reflection and exploration today and for homework. Pt expressed that she feels lost and often only views herself in a negative lens which makes it hard for pt to be vulnerable, give herself compassion, and look at things with a realistic perspective. Pt receptive to learning about dialectical thinking and the power of seeing things in the [place]. Practiced some dialectical thinking self-talk statements and pt was encouraged to do a self-reflection exercise for homework. Risks/Concerns:: Pt denies any suicidal ideations, plan, or intent. Pt denies any thoughts of . Progress Toward Goals/Plan:: Pt is responding well to IOP tx AEB her consistent attendance, engagement in groups, and report of benefitting from the topics. Pt's symptoms are ongoing from admission, but she reports benefitting from the coping skills and she is incorporating things outside of IOP. Pt's stressors with work, her family, and the world still impact pt daily. Pt will continue IOP tx to prevent decompensation, improve daily functioning, and reduce negative self-talk. Time Stopped:: 12:25
--- NOTE | 2024-12-07 02:00 | BH.SGPN.GN ---
Behaviors/Verbalizations/Mental Status: [] Eye contact is good. Motor activity is appropriate. Appearance is casual. Speech is Appropriate. Mood is dysthymic. Affect is congruent. Thoughts are linear and logical. No evidence of psychosis. Reviewed daily check in sheet and no reports of suicidal ideations or intent. Client Response/Progress/Benefit: [] Pt was an active participant in group discussions. Attentive. Did well to identify 2 mental health wins including being able to get a lot of work stuff done yesterday. Identified use of opposite action and taking small breaks. Additional win noted as not allowing a negative news article completely ruin her morning and instead turned it into an opportunity to give back. Current stressor noted as struggling with overly engaging in political issues. Benefited from group support, encouragement, and feedback. Will continue in IOP to prevent decompensation, promote mood stability, and increase consistent use of healthy coping. Narrative Note: []
--- NOTE | 2024-12-07 10:10 | BH.SGPN.GN ---
Behaviors/Verbalizations/Mental Status: [] Pt alert and oriented, casually dressed and groomed. Eye contact good. Motor activity appropriate. Speech within normal limits. Mood: anxious and depressed. Affect: congruent. Thoughts linear, logical, no signs of hallucinations or delusions. Client Response/Progress/Benefit: [] Pt was an active participate during group discussions. Attentive during psychoeducation on self-sabotage and its impact on mental health. Attentive as peers worked together to define self-sabotage. Worked with peers to identify different types of self-sabotage such as; procrastination, self-medicating, unrealistic expectations, people-pleasing, and poor boundaries. Worked with peers to identify reasons for self-sabotage behaviors (feels comfortable, can distract,perceived control, fear of success, and a type of self-protection). Seemed to benefit from gaining awareness about the self-sabotage. Pt to continue IOP tx to prevent decompensation, increase healthy coping, and improve functioning. Narrative Note: []
--- NOTE | 2024-12-07 11:10 | BH.SGPN.GN ---
Behaviors/Verbalizations/Mental Status: []Pt alert and oriented, casually dressed and groomed. Eye contact good. Motor activity appropriate. Speech within normal limits. Affect congruent, mood anxious. Thoughts linear, logical, no signs of hallucinations or delusions. Client Response/Progress/Benefit: []Pt responded well to session, attentive and providing input. Pt worked on her mental health wellness garden picture and discussed things that contribute to mental wellness in his life. With peers, pt discussed things that would sabotage one's mental health wellness and added it to the garden metaphor. Pt identified things pt personally does to sabotage as procrastination, self-medicating, and running on empty. Pt attentive during psychoeducation on ways to reduce self-sabotage. Pt identified a skill to work on to decrease sabotaging behaviors. Pt appeared to benefit from learning skills and gaining awareness of self-sabotaging behaviors. Pt will continue IOP tx to increase consistent use of healthy coping, focus on the here and now, and prevent decompensation.
--- NOTE | 2024-12-08 09:05 | BH.SGPN.GN ---
Behaviors/Verbalizations/Mental Status: [] Eye contact is good. Motor activity is appropriate. Appearance is casual. Speech is Appropriate. Mood is depressed. Affect is congruent. Thoughts are linear and logical. No evidence of psychosis. Reviewed daily check in sheet and no reports of suicidal ideations or intent. Client Response/Progress/Benefit: [] Pt was an active participant in group discussions. Attentive. Daily symptom tracker notes /5 for anxiety and 2/5 for depression. ? I didn?t doom scroll?. Shared the impact that scrolling through politically charged news can have on her mental health and her efforts to reduce this behaviors. Working on managing urges to seek out these types of news stories for the benefit of her wellness. She is working to reframe and accept the need to take breaks. ? I actually sat down which is great?. Shared pressure she places on herself to complete tasks. Progress noted. Benefited from group support, feedback, and encouragement. Will continue in IOP to maintain safety, prevent decompensation, and increase healthy coping. Narrative Note: []
--- NOTE | 2024-12-08 10:15 | BH.SGPN.GN ---
Behaviors/Verbalizations/Mental Status: []Pt alert and oriented, casually dressed and groomed. Eye contact good. Motor activity appropriate. Speech within normal limits. Affect congruent, mood anxious and depressed. Thoughts linear, logical, no signs of hallucinations or delusions. Client Response/Progress/Benefit: [] Pt receptive to session AEB contributing to group discussion, as well as listening attentively to others, and taking notes. Worked with group to brainstorm the positive and negative aspects of stress on physical and mental health as well as the impact of distress on performance, relationships, and mental health. Pt shared their top stressors to be: feeling like she never has enough time, guilt, the world, and driving her daughter ?everywhere.? Shared when feeling overwhelmed with stress pt tends to shut down and lash out. Benefited from increased awareness of positive and negative stress as well as how stress impact individuals. Will continue in IOP to prevent decompensation, increase distress tolerance, and improve dialectical thinking. Narrative Note: []
--- NOTE | 2024-12-08 11:15 | BH.SGPN.GN ---
Behaviors/Verbalizations/Mental Status: [] Pt alert and oriented, casually dressed and groomed. Eye contact good. Motor activity appropriate. Speech within normal limits. Affect congruent, mood anxious and depressed. Thoughts linear, logical, no signs of hallucinations or delusions. Client Response/Progress/Benefit: [] Pt was an attentive participant in group discussions and actively engaged during experiential activity, doing well to regulate their emotions throughout the activity and work with peers. Attentive during psychoeducation on the 4 A's (Avoid, adapt, alter, accept) of coping with stress. Shared that they would benefit most from adapting her expectations of what she is able to do right now, accept help, and avoid adding additional stressors to her life. Was able to identify the connection between the experiential activity and utilization of stress management skills. Benefited from increased awareness of stress management strategies. Pt will continue IOP to prevent decompensation, increase healthy coping, and improve functioning. Narrative Note: []
--- NOTE | 2024-12-12 09:00 | BH.SGPN.GN ---
Behaviors/Verbalizations/Mental Status: []Pt alert and oriented, casually dressed and groomed. Eye contact good. Motor activity appropriate. Speech within normal limits. Affect congruent, mood hopeful. Thoughts linear, logical, no signs of hallucinations or delusions. Reviewed pt?s symptom tracker, no risk for suicidal ideation, plan, or intent /. Client Response/Progress/Benefit: [] Pt was an active participant in group discussions. Attentive. Able to identify mental health wins including practicing self-compassion recently, going into work and giving a presentation, and using skills outside of IOP. Pt's stressor today is health issues and migraines impacting pt. Pt stated pt is feeling better? this morning. Pt receptive to feedback from peers which pt reported was helpful. Progress noted. Benefited from group support, encouragement, and feedback. Will continue in IOP tx to promote mood stability, gain healthy coping skills, and combat distortions. Narrative Note: []
--- NOTE | 2024-12-12 10:10 | BH.SGPN.GN ---
Behaviors/Verbalizations/Mental Status: [] Eye contact is good. Motor activity is appropriate. Appearance is casual. Speech is Appropriate. Mood is anxious and dysthymic. Affect is congruent. Thoughts are linear and logical. No evidence of psychosis Client Response/Progress/Benefit: [] Pt responded well to session AEB contributing to small group discussion, taking notes, and listening attentively to others. Group defined anger and discussed the benefits of managed anger and anger as a secondary emotion. Group shared perspective on benefits of anger as advocating for self and getting needs met, a means to internal change, as well as a catalyst for change. Pt engaged in group discussion on common triggers for anger. Identified seeing injustices or when other's are hurt as an anger trigger. Appeared to benefit from increased knowledge of the anger cycle as well as personal triggers. Will continue IOP to increase healthy coping, prevent decompensation, and improve functioning. Narrative Note: []
--- NOTE | 2024-12-12 10:54 | PCM.BH.PN ---
Progress Note Progress Note: History of Present Illness/Interim History: The patient is a 49-year-old female who with a history of depression, anxiety, ADHD and marijuana use disorder who is seen in follow-up at the [facility] behavioral health [facility]. The patient was last seen 2 weeks ago and at that time Abilify was added to help with her depression. She is not having any side effects on it and is tolerating the Abilify well currently. She states that she feels somewhat better and feels less depressed. She has been able to function well at work. She denies any hopelessness and denies passive thoughts of , plan for suicide, suicidal ideation, homicidal ideation, hallucinations or delusions. She is still using marijuana most of the day but has cut down somewhat as she is no longer using it in the morning and she was before. She still has some worry and negative rumination. Current Psychiatric Medications: [] Cymbalta 60 mg p.o. daily (x 10 years); Abilify 2 mg p.o. daily (x 2 weeks) Mental Status Examination: [] The patient is a 49-year-old female who appears normal for stated age and is casually dressed and groomed with good hygiene. She has no psychomotor agitation or retardation. Eye contact is good and speech is normal rate and rhythm and fluent with no pressure. Mood is depressed. Affect is mildly constricted. Thought process is goal-directed and organized. Thought content: The patient feels she is getting better. There is no evidence of passive thoughts of , suicidal ideation, homicidal ideation, plan for suicide, hallucinations or delusions. Reality testing is intact. Judgment is intact. Insight is fair. Impulsivity is moderate. Diagnoses: [] 1. Major depressive disorder, recurrent, severe without psychosis (improving) 2. Generalized anxiety disorder 3. Attention deficit disorder 4. Cluster B traits 5. History of bulimia 6. Primary support and work issues Plan: [] The patient will continue the [facility] and behavioral health as the structure, support, education and group therapy will hopefully prevent worsening of the patient's symptoms. No medication changes were made today as the patient has only been on this dose of Abilify for 2 weeks and is showing some improvement. She did complain of some bruxism for the past 5 years since taking Cymbalta but this is tolerable with a mouth brace. The patient will continue to follow-up with her outpatient providers and I will see the patient in follow-up in several weeks. Refills were sent in for her Abilify prescription today.
--- NOTE | 2024-12-12 11:10 | BH.SGPN.GN ---
Behaviors/Verbalizations/Mental Status: []Client alert and oriented, casually dressed and groomed. Eye contact good. Motor activity appropriate. Speech within normal limits. Affect congruent, mood anxious. Thoughts linear, logical, no signs of hallucinations or delusions. Client Response/Progress/Benefit: []Pt was engaged throughout AEB contributing to group discussion and activity. Group processed how they each responded to the intentionally difficult task they were asked to completed and described the physical and emotional anger cues experienced throughout, as well as strategies used for managing these frustrations. Pt contributed as group brainstormed healthy coping skills for better managing anger which included: music, walking/exercise, taking a break, healthy venting, avoiding unnecessary stressors, reflection, and journaling. Pt cooperative with working in small groups to identify what strategy wants to work on to help interrupt personal anger cycle. Pt shared she learned today I couldn't feel anger as a child and realize it's something I need to work on. Pt to continue IOP to promote use of healthy coping skills, challenge distortions, and prevent decompensation.
--- NOTE | 2024-12-14 09:05 | BH.SGPN.GN ---
Behaviors/Verbalizations/Mental Status: []? Eye contact is good. Motor activity is appropriate. Appearance is casual. Speech is Appropriate. Mood is agitated. Affect is congruent. Thoughts are linear and logical. No evidence of psychosis. Reviewed daily check in sheet and no reports of suicidal ideations or intent? Client Response/Progress/Benefit: []? Pt engaged throughout, providing supportive feedback. Did well to identify mental health wins, which included feeling more motivated which allowed for her to spend time getting back to several friends who had previously reached out.?Additional win noted as challenging herself to practice sitting with the uncomfortable and doing a creative task despite it not feeling productive. Shared use of self-compassion and affirmations. Stressor noted as feeling frustrated with some of her teenage daughter's choices. Progress noted. Benefited from group support and encouragement. Recommended continued IOP tx to maintain mood stability, increase self-compassion, and prevent decompensation.? Narrative Note: []
--- NOTE | 2024-12-14 11:10 | BH.SGPN.GN ---
Behaviors/Verbalizations/Mental Status: [] Pt alert and oriented, casually dressed and groomed. Eye contact fair. Motor activity appropriate. Speech within normal limits. Affect congruent, mood anxious. Thoughts linear, logical, no signs of hallucinations or delusions. Client Response/Progress/Benefit: [] Pt responded well to session, engaged in the experiential activity and attentive throughout group processing. Interactive discussion with peers on what FOF has kept them from which included; trying new things, therapy, and medications as all as starting or ending relationships/jobs. Pt completed fear of failure worksheet and was able to identify thoughts and behaviors that reinforce personal fear of failure. Pt participated in small group discussion regarding strategies to overcome fear of failure. Identified struggling most with developing close friendships. Strategies to overcome FOF identified as challenging negative thoughts that I'm too much for most people. ?Appeared to benefit from increased knowledge of strategies to combat fear of failure and gaining self-awareness. Pt will continue IOP tx to increase consistent use of healthy coping skills, challenge distorted thoughts, and prevent decompensation. Narrative Note: []
--- NOTE | 2024-12-14 13:34 | BH.MDN_ITS ---
Multi-Disciplinary Note Note 60-min Individual: Time Started:: 12:00 Date: 12/14/24 Purpose of session/treatment goals addressed:: To work on goal #1 of pt's tx plan and to address current stressor with daughter. Eye Contact:: Good Motor Activity:: Appropriate Appearance:: Neat Speech:: Appropriate Mood:: Euthymic and Anxious Affect:: Congruent Thoughts:: Linear, Logical and No evidence of hallucinations/delusions noted Staff Interventions:: thought challenging, motivational interviewing, CBT techniques, strengths perspective, goal setting and other (reviewed homework from last session and discussed setting boundaries for homework this week.) Client Response:: Pt responded well to session, open to meeting with therapist. Pt shared she is feeling both better than yesterday and a little stressed because of ongoing conflict with her oldest daughter. Pt has shared about her worries, conflict, and stress with this daughter before and pt stated recently she and her daughter got into an argument that led to pt isolating. Pt reflected on the situation and did acknowledge that she managed this trigger much better than she would have a month ago and it did not turn into days of isolation. Pt also noted that she is realizing more that she needs to set some firmer boundaries with her daughter. Pt shared she feels anxious about setting boundaries sometimes, due to not wanting to hurt other's feelings, but pt can see how not setting boundaries is actually harming pt and her daughter's relationship. Pt plans to talk with her daughter this weekend. Pt also completed the homework from last session and pt shared it gave her some perspective on how she views herself as well as areas she wants to improve upon such as being more assertive in initiating hang outs with friends and getting back into volunteering. Pt also noted that looking at the different ways she views herself makes her reflect on things she has done well over the years and the importance of living according to her values. Pt reports she is getting better with ackn owledging distortions and using self-compassion as well. Risks/Concerns:: Pt denies any suicidal ideations, plan, or intent. Pt denies any thoughts of . Progress Toward Goals/Plan:: Pt reports progress in her ability to be more assertive with her children and , catching negative thought patterns, and breaking unhealthy maintenance cycles. Pt can benefit from continuing to work on challenging distortions, practicing self-compassion, and setting boundaries. Pt got set up with Anne Multani today for ongoing medication management following IOP discharge. Pt will continue IOP tx to promote mood stability, reduce negative thinking, and improve daily functioning. Time Stopped:: 13:00
--- NOTE | 2024-12-14 13:46 | BH.MTP_ITS ---
Treatment Plan Review Demographics Date of Admission:: 11/21/24 Date of Treatment Plan Review:: 12/14/24 Admitting Diagnoses:: Major depressive disorder, recurrent, severe without psychosis F 33.2; Generalized anxiety disorder; ADD; History of bulimia Current Diagnoses:: Major depressive disorder, recurrent, severe without psychosis F 33.2; Generalized anxiety disorder; ADD; History of bulimia Patient Status Patient's Response to Treatment:: Pt has responded well to session AEB consistently attending IOP and engaging in both individual and group therapy sessions. Pt consistently completes homework provided from individual counseling. Pt contributes actively during group discussions, takes notes, appears to listen to others, and engages in group activities. Pt's overall DSM-5 scores have decreased by 46% since admission and she reports finding benefit from the coping skills so far. Status of Current Problems and Symptoms: Pt reports her symptoms are improving, but ongoing. Pt feels like she is beginning to start feeling like myself but pt still recognizes her depressive symptoms are interfering with her daily functioning. Pt wants to continue developing self-confidence, self-advocacy, and boundary setting skills. Pt also wants to continue improving her dialectical thinking to combat all or nothing thinking and negative core beliefs. Pt will need an outpatient therapist prior to IOP discharge. Progress Problem #1: Problem Name:: Depression, negative self-talk, and thoughts of . Status of Goals:: Objective 1- in progress. Pt?s scores for depression have decreased since admission by 50%. Pt can benefit from reducing these symptoms more. Pt feels that she is isolating less, but she occasionally will fall into a depression hole and spend an evening sleeping to avoid, but this is happening much less. Objective 2- in progress. Pt is working on self- compassion, dialectical thinking, and giving herself credit instead of filtering out her successes and strengths. Team Recommendations:: Team recommends continued goals and objectives to reinforce skills and reduce symptoms. Team recommends pt continue working on combating distortions, being more self-compassionate, and practicing dialectical thinking. Problem #2: Problem Name:: Anxiety, ruminations, and avoidance. Status of Goals:: Objective 1- in progress. Pt is working on reducing catastrophizing thoughts that lower distress tolerance and she is gaining confidence in her ability to problem-solve and trust her skills. Pt has also been working on asserting her needs to avoid more stress later. Objective 2- complete with ongoing work encouraged. Pt?s symptoms have only decreased by 56% since admission. Team Recommendations:: Treatment team encourages pt to continue working on distress tolerance skills, verbalizing boundaries, grounding skills, and practicing self-care to reduce stress.
--- NOTE | 2024-12-15 09:05 | BH.SGPN.GN ---
Behaviors/Verbalizations/Mental Status: [] Eye contact is good. Motor activity is appropriate. Appearance is casual. Speech is Appropriate. Mood is anxious. Affect is congruent. Thoughts are linear and logical. No evidence of psychosis. Reviewed daily check in sheet and no reports of suicidal ideations or intent. Client Response/Progress/Benefit: [] ?Pt was an active participant in group discussions. Attentive. Daily symptom tracker notes 2/5 for anxiety and 1/5 for depression. Overall reports mood and functioning are ? better?. Utilized opposite-action and behavioral activation last night to spend time with friends. Had to also use thought challenging and reframing to motivate herself not to cancel. ? It was good for me?. Continues to struggle with consistent sleep which impact her mood and energy. ? I?m not staying asleep?. Overall progress noted. Benefited from group support, encouragement, and feedback. Will continue in IOP to prevent decompensation, stabilize depression, and increase healthy coping. Narrative Note: []
--- NOTE | 2024-12-15 10:10 | BH.SGPN.GN ---
Behaviors/Verbalizations/Mental Status: [] Client alert and oriented, casually dressed and groomed. Eye contact good. Motor activity appropriate. Speech within normal limits. Affect congruent, mood content. Thoughts linear, logical, no signs of hallucinations or delusions. Client Response/Progress/Benefit: [] Pt responded well to session AEB sharing and listening attentively to others. Group provided examples of benefits of having social support, including: validation, get assistance, and accountability. Pt also participated in group discussion regarding the barriers to accessing support identifying examples to include: negative thinking, lack of communication, and lack of trust. Personal example identified as shutting down and not asking for help. Pt participated in experiential activity illustrating the impact communication, boundaries, and patience play in creating healthy support systems. Pt appeared to benefit from increased knowledge of the benefits of social support and greater self-awareness. Pt to continue IOP to improve distress tolerance, increase consistent use of healthy coping skills, and prevent decompensation. Narrative Note: []
--- NOTE | 2024-12-15 11:10 | BH.SGPN.GN ---
Behaviors/Verbalizations/Mental Status: []Client alert and oriented, casually dressed and groomed. Eye contact good. Motor activity appropriate. Speech within normal limits. Affect congruent, mood anxious. Thoughts linear, logical, no signs of hallucinations or delusions. Client Response/Progress/Benefit: [] Pt participated throughout AEB contributing to discussion, providing examples, and taking notes. Pt provided input during discussion on the types of support our supports can provide. Pt able to identify current support system and barriers that get in the way of using supports. Pt reported after identifying what type of supports pt receives, pt gained awareness that pt could benefit from more social support by making plans and actually following-through with them. Pt seemed to benefit from identifying the type of support pt needs to work on improving. Pt recommended to continue IOP tx to promote mood stability, reduce negative thinking patterns, and improve daily functioning. Narrative Note: []
== END 2024-12-15 23:59 ==
LOC: BHIOP 09:12
PROVIDERS: PCP Nurse Practitioner Family; Referring Provider Psychiatry & Neurology Psychiatry; Visit Provider Psychiatry & Neurology Psychiatry
DX: F33.2 Major depressive disorder, recurrent severe without psychotic features (principal); F41.1 Generalized anxiety disorder; F98.8 Other specified behavioral and emotional disorders with onset usually occurring in childhood and adolescence; Z86.59 Personal history of other mental and behavioral disorders; Z79.899 Other long term (current) drug therapy
CPT/HCPCS: S9480; 90832; 90837; 90853

== ENCOUNTER 2024-12-18 07:36 | Outpatient (RCR) | payer BC, SELFPAY ==
--- NOTE | 2024-12-14 10:15 | BH.SGPN.GN ---
Behaviors/Verbalizations/Mental Status: []Pt alert and oriented, neatly dressed and groomed. Eye contact good. Motor activity appropriate. Speech within normal limits. Affect congruent, mood euthymic. Thoughts linear, logical, no signs of hallucinations or delusions. Client Response/Progress/Benefit: [] Pt responded well to session, engaged in the experiential activity and attentive throughout group processing. Pt reported fear of failure has kept Pt from forming deep friendships. Pt completed fear of failure worksheet and was able to identify thoughts and behaviors that reinforce personal fear of failure including negative self-talk, not asserting her needs, and people pleasing. Pt participated in small group discussion regarding strategies to overcome fear of failure. Identified wanting to work on thinking in the [place] and practicing self-compassion. ?Appeared to benefit from increased knowledge of strategies to combat fear of failure and gaining self-awareness. Pt will continue IOP tx to prevent decompensation, combat distortions, and increase self-compassion. Narrative Note: []
[2024-12-16 02:40] VITALS: BP 127/74; PULSE 77
--- NOTE | 2024-12-19 09:00 | BH.SGPN.GN ---
Behaviors/Verbalizations/Mental Status: [] Eye contact is good. Motor activity is appropriate. Appearance is casual. Speech is Appropriate. Mood is anxious and content. Affect is congruent. Thoughts are linear and logical. No evidence of psychosis. Reviewed daily check in sheet and no reports of suicidal ideations or intent. Client Response/Progress/Benefit: [] Pt was an active participant in group discussions. Attentive. Did well to identify 2 mental health wins. Wins included coming to group today and deciding to stick out the program despite wanting her daughter to attend. Reports reminding herself that she deserves to take the time to allow herself to heal. Additional win noted as using mindfulness to manage anxiety this morning rather than numbing herself with marijuana. Stressor continues to be her frustrations with her daughter's lack of motivation and trying to balance support with not enabling her. Receptive of and appearing to benefit from group support and challenging pt to give herself credit for doing what?s in her control to help her daughter. Benefited from group support, encouragement, and feedback. Will continue in IOP to prevent decompensation, promote mood stability, and increase consistent use of healthy coping. Narrative Note: []
--- NOTE | 2024-12-19 10:15 | BH.SGPN.GN ---
Behaviors/Verbalizations/Mental Status: []Pt alert and oriented, casually dressed and groomed. Eye contact good. Motor activity appropriate. Speech within normal limits. Affect congruent, mood anxious. Thoughts linear, logical, no signs of hallucinations or delusions. Client Response/Progress/Benefit: [] Pt responded well to session, attentive and engaged. Group participated in the discussion defining stigma as well as what stigma has kept pt's from doing in their lives. Pt stated mental health stigma has kept pt from being vulnerable and asking for help. Pt worked with peers to begin discussion of what reinforces stigma, both socially and internally, and this was discussed further in the next group. Pt appeared to benefit from learning about the different types of stigma as well as gaining awareness of how stigma has personally impacted pt. Pt will continue IOP tx to prevent decompensation, improve daily functioning, and increase distress tolerance. Narrative Note: []
--- NOTE | 2024-12-19 11:15 | BH.SGPN.GN ---
Behaviors/Verbalizations/Mental Status: []Pt alert and oriented, casually dressed and groomed. Eye contact fair. Motor activity appropriate. Speech within normal limits. Affect congruent, mood dysthymic. Thoughts linear, logical, no signs of hallucinations or delusions. Client Response/Progress/Benefit: [] Pt engaged participant AEB participating in the activity, providing input during small group discussion, and listening attentively to others. Pt appeared to connect with discussion in the benefits of addressing mental health stigma which included: improved relationships, increased willingness to seek help, increased happiness, and improved confidence. Group brainstormed strategies to combat social and perceived stigma. Pt identified that they can contribute to stigma by not trying anything too risky and thinking she is a hot mess. Pt shared one thing pt can do to combat stigma is to decrease her negative self-talk. Appeared to benefit from increasing awareness of strategies to combat stigma. Pt is to continue IOP to challenge distorted thoughts, improve healthy coping skills, and prevent decompensation.
--- NOTE | 2024-12-21 09:05 | BH.SGPN.GN ---
Behaviors/Verbalizations/Mental Status: [] Eye contact is good. Motor activity is appropriate. Appearance is casual. Speech is Appropriate. Mood is anxious. Affect is congruent. Thoughts are linear and logical. No evidence of psychosis. Reviewed daily check in sheet and no reports of suicidal ideations or intent Client Response/Progress/Benefit: [] Pt was an active participant in group discussion. Attentive. Daily symptom tracker notes 12/20 for anxiety. She reports insomnia, restlessness, and anxiety which she attributes to new medication. She also reports a migraine yesterday. Despite struggles she is staying consistent with self-care, coping, and reframing which has prevent decompensation as well as isolation. Progress noted. Benefited from group support, encouragement, and feedback. Will continue in IOP to prevent decompensation, increase healthy coping, and improve functioning. Narrative Note: []
--- NOTE | 2024-12-21 10:10 | BH.SGPN.GN ---
Behaviors/Verbalizations/Mental Status: [] Pt alert and oriented, casually dressed and groomed. Eye contact good. Motor activity appropriate. Speech within normal limits. Mood is anxious. Affect is congruent. Thoughts linear, logical, no signs of hallucinations or delusions. Client Response/Progress/Benefit: [] Pt was an active?participant in group discussions and experiential activity. Worked with peers to identify benefits of healthy relationships which included; support, shared experiences, laughter, understanding, and the ability to challenge us. Group identified factors that lead to unhealthy relationships which included; fear, loneliness, low self-esteem, need to be liked, and societal expectations. Benefited from increased insight and awareness of benefits of healthy relationships and factors that contribute to unhealthy relationships. Will continue IOP to prevent decompensation, decrease depression, improve functioning, and increase healthy coping skills. Narrative Note: []
--- NOTE | 2024-12-21 11:05 | BH.SGPN.GN ---
Behaviors/Verbalizations/Mental Status: [] Pt alert and oriented, casually dressed and groomed. Eye contact good. Motor activity appropriate. Speech within normal limits. Affect full, mood euthymic, Thoughts linear, logical, no signs of hallucinations or delusions. Client Response/Progress/Benefit: [] Pt responded well to session, engaged and taking notes throughout. Worked with group to connect components of the experiential activity with characteristics of healthy and unhealthy relationships. Attentive during psychoeducation about characteristics of healthy, unhealthy, and abusive relationships. Pt reported pt is better with being respectful and having equality in her home. However, pt reported pt can work on being brave and vulnerable with her family and reminding herself that it is okay if someone is upset. Appeared to benefit from identifying current healthy relationship attributes and an area Pt wants to work on to build healthier relationships. Pt to continue IOP tx to promote mood stability, increase self-confidence, and reduce negative self-talk. ?? Narrative Note: []
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
--- NOTE | 2024-12-22 09:05 | BH.SGPN.GN ---
Behaviors/Verbalizations/Mental Status: [] Eye contact is good. Motor activity is appropriate. Appearance is casual. Speech is Appropriate. Mood is anxious. Affect is congruent. Thoughts are linear and logical. No evidence of psychosis. Reviewed daily check in sheet and no reports of suicidal ideations or intent. Client Response/Progress/Benefit: [] Pt was an active participant in group discussion. Attentive. Daily symptom tracker notes 12/20 for anxiety. Shared that she was ?assertive? with co-workers and discussed why this was a mental health win for her due to her need to people please. She also discussed ?imposter syndrome? and how this impacts her interactions and self-esteem. Progress noted. Benefited from group support, encouragement, and feedback. Will continue in IOP to prevent decompensation, increase healthy coping, and improve functioning. Narrative Note: []
--- NOTE | 2024-12-22 10:10 | BH.SGPN.GN ---
Behaviors/Verbalizations/Mental Status: [] Eye contact is good. Motor activity is appropriate. Appearance is casual. Speech is Appropriate. Mood is content. Affect is congruent. Thoughts are linear and logical. No evidence of psychosis. Client Response/Progress/Benefit: [] Pt receptive of session, actively engaged throughout AEB taking notes, providing input, and contributing in group discussion. Appeared to connect with group topic of automatic thoughts and cognitive distortions, as well as the impact of thought patterns on mental health, coping behaviors, and relationships. This particular group is very heavy on psychoeducation and pt appeared to connect with distortions and how they can impact functioning. Identified struggling with the shoulds and musts distortion. Pt appeared to benefit from gaining insight on distorted thinking patterns and how this impacts overall mental health. Will continue IOP to stabilize mood, improve ability to function, and increase emotional regulation skills. Narrative Note: []
--- NOTE | 2024-12-22 11:12 | BH.SGPN.GN ---
Behaviors/Verbalizations/Mental Status: [] Eye contact is good. Motor activity is appropriate. Appearance is casual. Speech is Appropriate. Mood is content. Affect is congruent. Thoughts are linear and logical. No evidence of psychosis. Client Response/Progress/Benefit: [] Pt was an active participant during group discussion. Pt was placed in a smaller group for activity and participated in identifying/combatting example distortions with peers. Pt was engaged in the smaller group, participated in group interactions to brainstorm answers, and appeared to be comprehending cognitive distortions. Pt stated could connect with many of the distortions covered in group. Benefited from gaining further insight and awareness of cognitive distortions as well as practicing ways to reframe and challenge thoughts. Will continue in IOP tx to increase healthy coping skills, and prevent decompensation. Narrative Note: []
--- NOTE | 2024-12-26 09:00 | BH.SGPN.GN ---
Behaviors/Verbalizations/Mental Status: [] Eye contact is good. Motor activity is appropriate. Appearance is casual. Speech is Appropriate. Mood is anxious and euthymic. Affect is congruent. Thoughts are linear and logical. No evidence of psychosis. Reviewed daily check in sheet and no reports of suicidal ideations or intent. Client Response/Progress/Benefit: [] Pt was an active participant in group discussions. Attentive. Daily symptom tracker notes 10/22 for depression and 12/20 for anxiety. 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 Noted increased pressure she had been putting on herself and did well to use self-compassion as well as ensure she gave herself enough time to prepare the day of the even. Pt reports feeling relieved and proud of herself for not finding a way out of doing it as she would have in the past. Progress noted. Benefited from group support, encouragement, and feedback. Will continue in IOP to prevent decompensation, promote mood stability, and increase healthy coping consistency. Narrative Note: []
--- NOTE | 2024-12-26 10:15 | BH.SGPN.GN ---
Behaviors/Verbalizations/Mental Status: [] Client alert and oriented, casually dressed and groomed. Eye contact good. Motor activity appropriate. Speech within normal limits. Affect congruent, mood anxious. Thoughts linear, logical, no signs of hallucinations or delusions. Client Response/Progress/Benefit: [] Pt was an attentive and active participant, AEB taking notes and providing input in group discussion. Attentive during psychoeducation. Pt engaged during interactive discussion in which the group defined self-care and discussed its benefits. Group discussed barriers and benefits to self-care. Identified benefits as being more productive, feeling more grounded, feeling happier, decreased anxiety, better quality of life, and increased resilience. Pt participated in small groups where they worked to identify and challenged common self-care ?myths?. Benefited from increased awareness of self-care, its benefits, and the consequences of not utilizing self-care strategies. Will continue IOP tx to prevent decompensation, increase healthy coping, and prevent decompensation. Narrative Note: []
--- NOTE | 2024-12-26 11:15 | BH.SGPN.GN ---
Behaviors/Verbalizations/Mental Status: []Client alert and oriented, neatly dressed and groomed. Eye contact good. Motor activity appropriate. Speech within normal limits. Affect congruent, mood euthymic. Thoughts linear, logical, no signs of hallucinations or delusions. Client Response/Progress/Benefit: [] Pt taking notes during discussion reviewing different areas of self-care and completing self-assessment of current self-care, as well as providing input throughout discussion. Did well to complete self-care self-assessment worksheet. Pt identified how pt is doing in each category and what self-care activities pt wants to start using. Pt selected social self-care to begin practicing more consistently. Pt plans to do this by ?initiating gatherings with my friends.? Appeared to benefit from completing the self-care evaluation and gaining insights into current self-care practices, as well as identifying areas in which pt would like to improve upon. Pt will continue IOP tx to promote mood stability, increase distress tolerance, and gain self-compassion. Narrative Note: []
--- NOTE | 2024-12-28 09:05 | BH.SGPN.GN ---
Behaviors/Verbalizations/Mental Status: []Pt alert and oriented, neatly dressed and groomed. Eye contact good. Motor activity appropriate. Speech within normal limits. Affect constricted-tearful, mood depressed. Thoughts linear, logical, no signs of hallucinations or delusions. Reviewed pt?s symptom tracker, no risk for suicidal ideation, plan, or intent 12/28/24. Client Response/Progress/Benefit: []Pt was an active participant in group discussions. Attentive. Able to identify mental health wins including asking for help yesterday when she was struggling, not staying in her depression hole for more than a few hours, and trying to challenge negative thoughts. Pt's stressor today is I got a negative response from my boss in a meeting and it spiraled me. Pt stated feeling sad this morning due to ongoing negative thoughts from pt's stressor. Pt receptive to feedback from peers which pt reported was helpful. Progress noted. Benefited from group support, encouragement, and feedback. Will continue in IOP to prevent decompensation, improve daily functioning, and reduce negative self-talk. Narrative Note: []
--- NOTE | 2024-12-28 10:15 | BH.SGPN.GN ---
Behaviors/Verbalizations/Mental Status: [] Eye contact is good. Motor activity is appropriate. Appearance is casual. Speech is Appropriate. Mood is anxious and depressed. Affect is congruent. Thoughts are linear and logical. No evidence of psychosis Client Response/Progress/Benefit: [] Pt engaged in session AEB listening attentively to others and providing input throughout. Pt engaged in activity, able to connect how it can be uncomfortable and difficult to practice acceptance when situations are out of one?s own control. Worked with peer group to define acceptance and identify the benefits that acceptance can bring. Benefits included; reduce stuckness, reduced stress, helps one to focus on situations we can change, and decreased negative self-talk. Seemed to benefit from increased awareness of the meaning as well as the importance of acceptance. Will continue in IOP to prevent decompensation, increase healthy coping, and improve functioning. Narrative Note: []
--- NOTE | 2024-12-29 09:40 | BH.MDN ---
Multi-Disciplinary Note Note 30-min Individual: Time Started:: 09:00 Date: 12/29/24 Purpose of session/treatment goals addressed:: To work on goal #2 of pt's tx plan and to discuss discharge. Eye Contact:: Good Motor Activity:: Appropriate Appearance:: Neat Speech:: Appropriate Mood:: Euthymic and Anxious Affect:: Full Thoughts:: Linear, Logical and No evidence of hallucinations/delusions noted Staff Interventions:: thought challenging, CBT techniques, mindfulness skills, discharge planning, strengths perspective and taught coping skills Client Response:: Pt responded well to session, open to meeting with therapist. Pt reports feeling pretty good today and shared that she is noticing herself catching negative thoughts more and pt has been using more self-compassion. Pt stated she is still having a lot of automatic self-judgment, but she is getting better with reframing thoughts instead of accepting them as truth. Pt shared setting boundaries with her daughter went pretty well, but pt still has a lot of stress around her daughter. 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 Pt recognizes that anxiety is signaling that pt cares about this and wants to do a good job, but pt is forgetting that she has more strengths and skills than she gives herself credit for. Pt encouraged to practice a thought challenge technique for homework to help pt identify her stressors and try to match her resources and strengths to them so pt can see that her ability to cope is almost equal to the size of the problem. Pt was also encouraged to practice looking at evidence to support core beliefs that she is capable and competent. Risks/Concerns:: Pt denies any suicidal ideations or thoughts of as of 12/29/24. Progress Toward Goals/Plan:: Pt continues to respond well to IOP tx and reports using coping skills outside of IOP. Pt reports using healthier coping skills has helped pt overcome some recent setbacks without falling deep into the depression hole. Pt reports she is challenging her negative thoughts more often and she has been practicing self-compassion. Pt continues to struggle with feeling overwhelmed which can lead to shutting down and isolation. Pt was given options for outpatient therapists and pt plans to decide who she wants to see by next session. Pt will continue IOP tx to promote mood stability, increase distress tolerance skills, and improve daily functioning. Time Stopped:: 09:30
--- NOTE | 2024-12-29 10:10 | BH.SGPN.GN ---
Behaviors/Verbalizations/Mental Status: [] Eye contact is good. Motor activity is appropriate. Appearance is casual. Speech is Appropriate. Mood is dysthymic. Affect is congruent. Thoughts are linear and logical. No evidence of psychosis. Client Response/Progress/Benefit: [] Pt engaged participant AEB listening to others, engaging in activity, and providing feedback throughout. Attentive during psychoeducation and provided insight into obstacles that impede mental wellness. Pt shared with group current mental health reality and desired mental health reality. Identified barriers to desired reality. Benefited from taking look at current mental health state and obstacles for progress. Pt to continue IOP tx to prevent decompensation, increase healthy coping, and decrease depressive symptoms to improve functioning. Narrative Note: []
--- NOTE | 2024-12-29 11:15 | BH.SGPN.GN ---
Behaviors/Verbalizations/Mental Status: []Pt alert and oriented, neatly dressed and groomed. Eye contact good. Motor activity appropriate. Speech within normal limits. Affect congruent, mood euthymic. Thoughts linear, logical, no signs of hallucinations or delusions. Client Response/Progress/Benefit: [] Pt was engaged at times during group discussions and was attentive during group activity. Worked with peers to identify strategies to help overcome barriers and obstacles to desired reality. Group worked together to develop strategies for the common barriers. Identified personal barriers to desired reality and chose one obstacle to work. Pt stated pt wants to work on not avoiding hard things and looking at the big picture instead of the problem.? Pt seemed to benefit from increased knowledge of practical strategies to overcome common barriers to moving forward. Will continue in IOP to promote mood stability, increase distress tolerance skills, and improve self-confidence. Narrative Note: []
--- NOTE | 2025-01-01 09:05 | BH.SGPN.GN ---
Behaviors/Verbalizations/Mental Status: [] Client alert and oriented, casual appearance. Eye contact good. Motor activity appropriate. Speech within normal limits. Affect congruent, mood euthymic. Thoughts linear, logical, no signs of hallucinations or delusions. Reviewed client's symptom tracker, no risk for suicidal ideation, plan, or intent. Client Response/Progress/Benefit: [] Client responded well to session AEB listening to others and sharing thoughts/feelings. Client reported current stressor as feeling very busy at work because she had a lot to get accomplished. Client stated she recognizes she still full of anxiety but try to use skill of writing out her priorities so she could focus on the task that were most important. Client noted mental positive as getting through a difficult work day. Client noted additional mental positives as sleeping through the night and did not cancel plans despite wanting to. Appeared to benefit from support from peers. Will continue IOP tx to promote utilization of healthy coping skills, challenge anxious thought patterns, and prevent decompensation. Narrative Note: []
--- NOTE | 2025-01-01 10:10 | BH.SGPN.GN ---
Behaviors/Verbalizations/Mental Status: [] Client alert and oriented, casually dressed and groomed. Eye contact good. Motor activity appropriate. Speech within normal limits. Affect congruent, mood euthymic. Thoughts linear, logical, no signs of hallucinations or delusions. Client Response/Progress/Benefit: [] Client participated during the group discussion, providing input and remaining attentive during psychoeducation. Participated in experiential activity. Client contributed during interactive discussion on the consequences of unhealthy expression of emotions. Worked with group to identify several consequences which included hurting relationships and not getting needs met. Contributing during interactive discussion on common potholes to effectively communicating. Client identified personal ones as stonewalling and shutting down. Client was able to relate and make connections between the experiential activity and the overall topic, managing emotions through activity with positive self-talk and thought challenging. Benefited from increased awareness of how stress and emotions can impact one's ability to communicate. Will continue in IOP to manage sx of anxiety, continue to improve overall functioning, and further improve independent decision making. Narrative Note: []
--- NOTE | 2025-01-01 11:15 | BH.SGPN.GN ---
Behaviors/Verbalizations/Mental Status: [] Client alert and oriented, casually dressed and groomed. Eye contact good. Motor activity appropriate. Speech within normal limits. Affect congruent, mood euthymic. Thoughts linear, logical, no signs of hallucinations or delusions. Client Response/Progress/Benefit: [] Client engaged in session AEB client listening attentively to peers and providing input. Attentive during psychoeducation on 4 zones of regulation. Pt able to identify feelings and behaviors for each zone. Pt identified coping skills one can use to support self in each zone. Pt stated belief that pt is in the yellow zone today. Pt reports plan to map out responsibilities to make them seem less big and anxiety provoking. Benefited from increased education on zones of regulation or stages of alertness for emotions and healthy coping skills to use for each zone. Pt will continue IOP tx to increase self-awareness, improve emotional regulation skills, and improve overall functioning. Narrative Note: []
--- NOTE | 2025-01-02 09:05 | BH.SGPN.GN ---
Behaviors/Verbalizations/Mental Status: []Pt alert and oriented, neatly dressed and groomed. Eye contact good. Motor activity appropriate. Speech within normal limits. Affect constricted, mood depressed. Thoughts linear, logical, no signs of hallucinations or delusions. Client Response/Progress/Benefit: []Pt was an active participant in group discussions. Attentive. Able to identify mental health wins including making plans with a friend and not canceling and allowing herself to have ?down time?. Pt's stressor today is ?stuff with my daughter.? Pt is feeling flat? this morning. Pt receptive to feedback from peers which pt reported was helpful. Progress noted. Benefited from group support, encouragement, and feedback. Will continue in IOP to promote use of healthy coping skills, reduce self-criticism, and improve self-confidence. Narrative Note: []
--- NOTE | 2025-01-02 10:10 | BH.SGPN.GN ---
Behaviors/Verbalizations/Mental Status: [] Eye contact is good. Motor activity is appropriate. Appearance is casual. Speech is Appropriate. Mood is euthymic. Affect is congruent. Thoughts are linear and logical. No evidence of psychosis. Client Response/Progress/Benefit: [] Client was an active participant during interactive group discussions. Attentive during psychoeducation on the six types of boundaries (physical, emotional, intellectual, sexual, time, and material) AEB note-taking and providing input. Along with peers contributed to interactive discussion on defining what a boundary is in mental health. Client along with peers identified challenges to setting boundaries which included; fear of other's response, guilt, fear of rejection, being a people pleaser, not knowing that a boundary needs to be set, etc. Client along with peers identified the benefits to setting boundaries such as better relationships, increased time for self-care, and increased confidence, and feeling more heard. Group discussed the mental health benefits to establishing boundaries at work, school, and home. Group members filled out self assessment of their boundary setting. Client shared with group that they found depending on setting, how much they set boundaries greatly changes. Client benefited from increased awareness and insight on the importance/benefit to setting health boundaries. Will continue in IOP to prevent decompensation and improve functioning. Narrative Note: []
--- NOTE | 2025-01-02 11:15 | BH.SGPN.GN ---
Behaviors/Verbalizations/Mental Status: [] Eye contact is good. Motor activity is appropriate. Appearance is casual. Speech is Appropriate. Mood is euthymic. Affect is congruent. Thoughts are linear and logical. No evidence of psychosis. Client Response/Progress/Benefit: [] Client responded well to session AEB listening attentively to peers, providing input, as well as taking notes throughout. Group discussed different styles of boundary setting. Reports connecting most with porous style of boundary setting. Participated in small group discussion brainstorming various strategies for improving healthy boundary setting. Client reports wanting to begin using skill of self reflection of why she wants to set a boundary to give her more evidence to be able to get herself to set it. Seemed to benefit from increased awareness of how different boundary styles can impact mental health. Will continue IOP tx to increase consistent application of skills and prevent decompensation. Narrative Note: []
--- NOTE | 2025-01-05 10:15 | BH.SGPN.GN ---
Behaviors/Verbalizations/Mental Status: []Pt alert and oriented, casually dressed and groomed. Eye contact good. Motor activity appropriate. Speech within normal limits. Affect congruent, mood anxious. Thoughts linear, logical, no signs of hallucinations or delusions. Client Response/Progress/Benefit: []Pt was an active participant in group discussion and activity. Attentive during psychoeducation. Along with peers, pt was able to identify barriers to taking action in their life. Identified several symptoms and stressors that pt feels are holding them back from progress such as poor boundaries, lack of communication of needs, people pleasing, and negative self-talk. Stated these things have kept pt from loving and advocating for herself. Pt shared that she wants to begin addressing unrealistic expectations of self. Benefited from increased self-awareness of obstacles. Will continue IOP tx to improve mood stability, promote consistent skill application, and further improve self-confidence. Narrative Note: []
--- NOTE | 2025-01-05 11:10 | BH.SGPN.GN ---
Behaviors/Verbalizations/Mental Status: []Pt alert and oriented, casually dressed and groomed. Eye contact fair. Motor activity appropriate. Speech within normal limits. Affect congruent, mood anxious. Thoughts linear, logical, no signs of hallucinations or delusions. Client Response/Progress/Benefit: [] Pt responded well to session, taking notes and participating in worksheet discussion. Pt connected with the discussion on action steps, and this helped pt learn how to set goals differently. Pt set a SMART goal that map out her priorities for the week on every Wednesday. Pt shared keeping her supplies in her workspace and setting a reminder alarm are things she can do to support herself in accomplishing this goal. Appeared to benefit from identifying a small goal to benefit mental health. Pt is to continue IOP to improve distress tolerance, challenge distortions, and prevent decompensation.
--- NOTE | 2025-01-05 15:17 | BH.MDN ---
Multi-Disciplinary Note Note 30-min Individual: Time Started:: 09:15 Date: 01/05/25 Purpose of session/treatment goals addressed:: To address current stressors and discuss strategies to help cope with these stressors. Another goal was to discuss discharge and aftercare. Eye Contact:: Good Motor Activity:: Appropriate Appearance:: Neat Speech:: Appropriate Mood:: Euthymic Affect:: Full Thoughts:: Linear, Logical and No evidence of hallucinations/delusions noted Staff Interventions:: thought challenging, CBT techniques, discharge planning, strengths perspective, taught coping skills and other (gave pt maintenance plan for homework and reviewed pt's homework from last session) Client Response:: Pt responded well to session, open to meeting with therapist. Pt reports she is doing well today and she shared that she had stressors this week, but pt felt that she managed these stressors well. Pt gave examples of how she managed a work stressor, a stressor with her daughter, and negative thought patterns. Pt shared she allowed herself to have self-care during the morning yesterday and she caught herself before it got to bed rotting. Pt was given a maintenance plan to work on for homework. We will review this next week. Pt shared she did her homework from last session which was to identify the different tasks pt is currently juggling and to figure out ways to prioritize and manage these without getting overwhelmed. Pt was creative with this and she naida different circles to represent tasks she has to do for work and colored them in when she finished the task. Pt stated this was very helpful and she plans to keep doing this. Pt also noted strengths that she has to help pt cope with the stress of work and one thing pt noted was she is a problem-solver and she has a good track record of accomplishing things. Pt also noted that when she gets anxiety at work she gets a false sense of urgency which makes pt feel like everything needs done now which then leads pt to not doing things she needs/wants. Pt responded well to thought challenging and self-compassion techniques which pt shared have been helping her reframe anxious thoughts. Risks/Concerns:: Pt denies any suicidal ideations, plan, or intent. Pt denies any thoughts of . Progress Toward Goals/Plan:: Pt continues to make progress towards tx goals AEB her self-report of improved mood and functioning both at work and at home. Pt also reports improvement in her boundary setting, self-compassion, and regulation of anxiety and depressive symptoms. Pt got connected with Jhoana Chester for individual counseling and the plan is for pt to discharge from [facility] next week. Time Stopped:: 10:00
--- NOTE | 2025-01-08 09:00 | BH.SGPN.GN ---
Behaviors/Verbalizations/Mental Status: [] Eye contact is good. Motor activity is appropriate. Appearance is casual. Speech is Appropriate. Mood is depressed. Affect is congruent. Thoughts are linear and logical. No evidence of psychosis. Reviewed daily check in sheet and no reports of suicidal ideations or intent. Client Response/Progress/Benefit: [] Pt participated at times during the group discussions. Attentive. He discussed developing a ?visual work plan? to help organize her thoughts. ? Helps me be less frantic?. She reports being frustrated with her mental halth stating its exhausting always having to work on one?s mental health. ? It?s work every single day?. Decrease in motivation to maintain gains that she has accomplished. Progress noted. Benefited from group support, encouragement, and feedback. Will continue in IOP to prevent decompensation, increase healthy coping, and improve functioning. Narrative Note: []
--- NOTE | 2025-01-08 10:20 | BH.SGPN.GN ---
Behaviors/Verbalizations/Mental Status: []Pt alert and oriented, neatly dressed and groomed. Eye contact good. Motor activity appropriate. Speech within normal limits. Affect congruent, mood euthymic. Thoughts linear, logical, no signs of hallucinations or delusions. Client Response/Progress/Benefit: [] Pt was attentive during psychoeducation and participated in group activity. Group discussed what contributes to a person?s perspective and how perspective can positively or negatively impact mental health treatment. Pt reflected on their perspective today and how it is impacting them. Pt shared their perspective is ?mostly positive, but right now I?m feeling frustrated with the maintenance.? Pt shared she is naturally a more optimistic person, so she gets down on herself when she is more negative. Pt appeared to benefit from increasing awareness of different perspectives and how they can affect mental health. Pt will continue IOP tx to promote gains, combat distortions, and improve daily functioning. ?? Narrative Note: []
--- NOTE | 2025-01-08 11:20 | BH.SGPN.GN ---
Behaviors/Verbalizations/Mental Status: []Pt alert and oriented, casually dressed and groomed. Eye contact good. Motor activity appropriate. Speech within normal limits. Affect congruent, mood content. Thoughts linear, logical, no signs of hallucinations or delusions. Client Response/Progress/Benefit: []Pt was attentive and contributed to group discussion. Pt worked with group to identify strategies that can help with challenging negative perspective. Pt stated they can practice using dialectical thinking to challenge negative perspective. Pt completed strengths exploration worksheet, identifying personal strengths. Pt able to acknowledge how these strengths are helping pt and can continue to help pt in mental health journey. Pt identified wanting to work on leaning on strength of creativity and empathy. Benefited from identifying personal strengths and strategies for enhancing use of identified strengths. Pt will continue IOP tx to continue improve functioning, mood stability, and prevent decompensation. Narrative Note: []
--- NOTE | 2025-01-10 09:00 | BH.SGPN.GN ---
Behaviors/Verbalizations/Mental Status: [] Eye contact is good. Motor activity is appropriate. Appearance is casual. Speech is Appropriate. Mood is depressed. Affect is congruent. Thoughts are linear and logical. No evidence of psychosis. Reviewed daily check in sheet and no reports of suicidal ideations or intent. Client Response/Progress/Benefit: [] Pt was an active participant in group discussions. Attentive. Did well to identify 2 mental health wins. Wins included making a point to attend IOP tx despite not wanting others to see her cry. Reflected that using opposite action to get here did help improve her mood and sense of accomplishment. Additional win noted as not isolating yesterday like she wanted to. Stressor noted as struggling to manage new intrusive thoughts. Benefited from group support, encouragement, and feedback. Will continue in IOP to prevent decompensation, promote mood stability, and increase consistent use of healthy coping. Narrative Note: []
--- NOTE | 2025-01-10 10:10 | BH.SGPN.GN ---
Behaviors/Verbalizations/Mental Status: []Pt alert and oriented, neatly dressed and groomed. Eye contact good. Motor activity appropriate. Speech within normal limits. Affect congruent, mood depressed. Thoughts linear, logical, no signs of hallucinations or delusions. Client Response/Progress/Benefit: [] Pt participated during small group discussions. Attentive during psychoeducation about defense mechanisms. Showed engagement during small group discussions and helped group identify which defense mechanisms were maladaptive, adaptive, or ?somewhere in the [place]cala.? Pt worked with small group on identifying how each defense mechanism can impact mental health and gave examples. Pt stated she learned that not all defense mechanisms are bad.?Seemed to benefit from gaining awareness about the different defense mechanisms. Pt to continue IOP tx to promote use of healthy coping skills, challenge distorted thoughts, and further improve self-compassion. Narrative Note: []
--- NOTE | 2025-01-10 11:10 | BH.SGPN.GN ---
Behaviors/Verbalizations/Mental Status: []Pt alert and oriented, neatly dressed and groomed. Eye contact good. Motor activity appropriate. Speech within normal limits. Affect congruent, mood calm. Thoughts linear, logical, no signs of hallucinations or delusions. Client Response/Progress/Benefit: [] Pt responded well to session, participating in activity and small group discussion. Group reviewed the rest of the defense mechanisms and discussed how these are adaptive, maladaptive, or somewhere in the [place]. Pt's defense mechanisms included rationalization, suppression, and intellectualization. Pt stated she has been using rationalization to justify her overuse of marijuana. Pt listened to fishing vessel mate teach different skills to help pt?s cope with or change their defense mechanisms. Pt appeared to benefit from gaining insight to the different defense mechanisms and learning coping skills. Pt will continue IOP tx to promote mood stability and reinforce healthy coping skills. Narrative Note: []
--- NOTE | 2025-01-11 11:58 | BH.IGGP_ITS ---
Aftercare Plan Demographics Treatment End Date:: 01/11/25 Psychiatrist:: Gracie Saldana Psychiatrist Office #:: [phone] [facility]/IOP Therapist:: Liliana Langston Therapist Phone #:: [phone] Medications Home Medications multivitamin with folic acid 400 mcg tablet 1 tab PO DAILY 06/04/20 Cholecalciferol (Vitamin D3) [Vitamin D3] 5,000 unit PO DAILY 06/10/20 duloxetine 30 mg capsule,delayed release 60 mg PO DAILY 06/10/20 levothyroxine 25 mcg tablet 25 mcg PO QHS 06/10/20 magnesium 200 mg tablet 200 mg PO DAILY 06/10/20 aripiprazole 2 mg tablet (Abilify) 2 mg PO DAILY 30 days #30 tabs 12/12/24 Plan Details Progress/Aftercare Plan Details:: Shanice has responded well to treatment as evidenced by Shanice consistently attending IOP sessions and her reduction of DSM- 5 scores since admission. Shanice was always attentive and receptive to learning during group and individual sessions. Shanice actively applied coping skills [facility] and reports overall her mood is improved and she is functioning better than she was several months ago. Shanice?s overall symptom reduction is 59% since admission with anger decreasing by 67%, depression decreasing by 50%, and anxiety decreasing by 67%. Shanice has increased self-compassion and faced many hard things. Most importantly, Shanice has become more vulnerable, flexible, and confident in her abilities. Shanice will follow up with [facility] for both medication management and individual therapy. Strategies for Success:: 1. Opposite action! Continue to break that cycle of anxiety, guilt, and depression by not letting emotions be the only drivers of your bus. 2. Remember that thoughts are thoughts NOT facts! You have power in if you give thoughts the time of day or not. 3. self-care! You deserve to take time for you and you also deserve to face the not so fun self-care like setting boundaries and telling people when things are not okay. 4. Self-compassion! You are human and you will make a mistake?BUT that doesn?t mean you are a failure or not good enough. Remember there are no bad parts! 5. Continue to practice acceptance and remember that it is okay to have tears and have big feelings 6. Practice positive self-talk and keep track of your wins. 7. Remember progress isn?t linear! You may have a setback or bump in the road, but that doesn?t mean you?ve lost all progress. 8. self-reflection and self-awareness. 9. Be understanding with yourself and try to see the whole picture, not just the snapshot. 10. Live in the rajput!! Appointments Appointments/Referrals to Other Services:: 1. IOP aftercare starting on 01/18/25 2. Jhoana Chester for individual therapy starting in March 3. Anne Multani for medication management on 02/08/25
--- NOTE | 2025-01-11 11:58 | BH.DS ---
Discharge Summary Demographics Date of Admission:: 11/21/24 Discharge Date: 01/12/25 Presenting Problems at Admission:: Pt is a 49-year-old female who was referred to [facility] tx by the psychiatric social worker supervisor at [facility]. Pt was evaluated on 11/11/24 at [facility] due to having thoughts of and significant anxiety. Pt currently endorses a depressed mood with isolation, anhedonia, lack of motivation, hopelessness, worthlessness, guilt, low energy, and loss of appetite. Pt also reports symptoms of anxiety including ruminations, restlessness, lack of concentration, and racing thoughts. Pt's symptoms have been impacting her ability to work and function at home. Discharge Diagnoses:: Major depressive disorder, recurrent, severe without psychosis F 33.2; Generalized anxiety disorder; ADD; History of bulimia Reason for Discharge:: Pt has accomplished her tx goals AEB her reduction of DMS-5 symptoms, her self-report of improved functioning and mood, and improved outlook. Pt no longer meets criteria for [facility] level of care and will discharge to outpatient counseling. Treatment Progress During Treatment & Response: Pt has responded well to treatment as evidenced by Pt consistently attending IOP sessions and her reduction of DSM-5 scores since admission. Pt was always attentive and receptive to learning during group and individual sessions. Pt actively applied coping skills outside of IOP and reports overall her mood is improved and she is functioning better than she was several months ago. Pt?s overall symptom reduction is 59% since admission with anger decreasing by 67%, depression decreasing by 50%, and anxiety decreasing by 67%. Pt has increased self-compassion and faced many hard things. Most importantly, Pt has become more vulnerable, flexible, and confident in her abilities. Pt will follow up with [facility] for both medication management and individual therapy. Issues Still to be Addressed:: Pt can benefit from continuing to improve her self-talk, self-compassion, boundary setting, and expressing her needs. Discharge Recommendations/Instructions:: Pt will follow up with Anne Multani for medication management with her first appointment being 02/08/25. Pt will also follow up with Jhoana Chester at [facility] for individual counseling. Pt's first appointment with Jhoana is in March. Pt will begin IOP aftercare starting on 01/18/25. Discharge Handout
== END 2025-01-12 08:30 | disposition home or self-care (01) ==
LOC: BHIOP 07:36
PROVIDERS: PCP Nurse Practitioner Family; Referring Provider Psychiatry & Neurology Psychiatry; Visit Provider Psychiatry & Neurology Psychiatry
DX: F33.2 Major depressive disorder, recurrent severe without psychotic features (principal); F41.1 Generalized anxiety disorder; F98.8 Other specified behavioral and emotional disorders with onset usually occurring in childhood and adolescence; F50.2 Bulimia nervosa; Z79.899 Other long term (current) drug therapy
CPT/HCPCS: S9480; 90832; 90834; 90853

== ENCOUNTER 2025-02-07 14:20 | Outpatient (RCR) | payer BC, SELFPAY ==
--- NOTE | 2025-01-18 14:00 | BH.COMM ---
Communication Note Communication with Client Communication Note: Patient completed IOP and presents today to start relapse prevention group which meets once weekly (1.5 hours) for 8 weeks. Case discussed with Dr. Urrutia with plan to admit with dx of F33.2
--- NOTE | 2025-01-18 15:40 | BH.MTP ---
Master Treatment Plan Patient Information Program Physician:: Dr. Gracie Saldana Primary Therapist:: Liliana GALINDO Psychiatric Diagnoses Psychiatric Diagnoses:: Major depressive disorder, recurrent, severe without psychosis F 33.2; Generalized anxiety disorder; ADD; History of bulimia Diagnosis Code(s):: F 33.2 Problem/Goal #1 Problem/Goal #1 Stated Goal:: client will maintain or see a reduction in symptoms AEB client score on the DSM 5 cross-cutting measure and improve client's daily functioning. Objectives Objective #1: Stated Objective: Client will continue to consistently apply healthy coping skills to maintain progress made in IOP tx. Interventions: Through group therapy, client will review warning signs and triggers as well as healthy coping skills learned in IOP tx to successfully maintain gains while transitioning into outpatient therapy. Discharge Criteria: Client will have accomplished this goal when client's score on the DSM-5 cross-cutting measure has maintained or reduced over a 8 week period. Target Date: 03/15/25 Review Date: 02/15/25 Status: open Objective #2: Stated Objective: Client will learn and utilize 2-3 maintenance strategies to prevent decompensation from original IOP DSM-5 scores. Interventions: Through group therapy, client will be provided with education on healthy maintenance behaviors, relapse prevention techniques, and healthy coping strategies. Discharge Criteria: Client will have accomplished this goal when can report using at least 2 maintenance skills to prevent decompensation compared to original IOP DSM-5 scores Target Date: 03/15/25 Review Date: 02/15/25 Status: open
--- NOTE | 2025-02-08 15:42 | BH.TPR ---
Treatment Plan Review Demographics Date of Admission:: 01/18/25 Date of Treatment Plan Review:: 02/08/25 Admitting Diagnoses:: Major depressive disorder, recurrent, severe without psychosis F 33.2; Generalized anxiety disorder; ADD; History of bulimia Current Diagnoses:: Major depressive disorder, recurrent, severe without psychosis F 33.2; Generalized anxiety disorder; ADD; History of bulimia Patient Status Patient's Response to Treatment:: Pt continues to respond well to treatment AEB pt's consistent attendance, ongoing attentiveness and engagement in group discussions, and continued reporting use of skills outside treatment environment. Pt's symptoms are still 49% lower than they were at IOP admission. Status of Current Problems and Symptoms: Pt reports ongoing anxiety and depressive symptoms that have decreased in intensity, but are still present. Pt has been sick and this worsened pt's mental health symptoms, leading to isolation. Pt reports she is beginning to feel better, but she still has rough days. Progress Problem #1: Problem Name:: Pt will maintain or see a reduction in sx Status of Goals:: Obj 1 - Complete with maintenance encouraged. Pt's depression decreased by 38% compared to IOP admission and anxiety has decreased by 67% compared to IOP admission. Obj 2 - complete with ongoing work encouraged. Pt has been reporting using opposite action, self-compassion, exercise, and dialectical thinking. Pt is also working on being more social and initiating hangouts with her friends. Team Recommendations:: Recommended client continue IOP aftercare group in addition to attending regular outpatient counseling in order to maintain gains. Pt also recommended to continue working on self-compassion, practice self-care, and setting realistic goals.
== END 2025-02-14 23:59 ==
LOC: BHOG 14:20
PROVIDERS: PCP Nurse Practitioner Family; Referring Provider Psychiatry & Neurology Psychiatry; Visit Provider Psychiatry & Neurology Psychiatry
DX: F33.2 Major depressive disorder, recurrent severe without psychotic features (principal)
CPT/HCPCS: 90853

== ENCOUNTER 2025-02-15 07:36 | Outpatient (RCR) | payer BC, SELFPAY ==
--- NOTE | 2025-02-22 14:00 | BH.SGPN.GN ---
Behaviors/Verbalizations/Mental Status: []Pt alert and oriented, neatly dressed and groomed. Eye contact good. Motor activity appropriate. Speech within normal limits. Affect congruent, mood euthymic. Thoughts linear, logical, no signs of hallucinations or delusions. Client Response/Progress/Benefit: [] Pt took notes and contributed to group discussions. Pt reports she did not see her therapist this week and taking medications consistently. Pt identified coping skills she has been using which included: exercise, deep breathing, meditation, yoga, socializing, and reframing negative thoughts. Pt engaged in discussion on habits and how they are formed. Pt gave examples of how to build healthy habits and reported benefitting from habit stacking. Pt shared she wants to work on building the habit of cleaning up one thing when she goes into her bedroom. Pt appeared to benefit from learning about building healthy habits and setting a habit goal. Will continue IOP aftercare to reinforce healthy coping skills and promote gains. ? Narrative Note: []
--- NOTE | 2025-03-08 16:49 | BH.DS ---
Discharge Summary Demographics Date of Admission:: 01/18/25 Discharge Date: 03/08/25 Presenting Problems at Admission:: Pt was admitted to [facility] level of care due to isolation, depression, and overall anxiety symptoms hindering pt's ability to work and function at her baseline. Pt was admitted to [facility] aftercare to maintain gains made in IOP tx, further reduce symptoms, and improve distress tolerance. Discharge Diagnoses:: Major depressive disorder, recurrent, severe without psychosis F 33.2; Generalized anxiety disorder; ADD; History of bulimia Reason for Discharge:: Pt has accomplished tx goals AEB ability to maintain mood stability and gains made in IOP. Treatment Progress During Treatment & Response: Pt responded well to treatment AEB pt's consistent attendance, ongoing attentiveness and engagement in group discussions, and continued reporting use of skills outside treatment environment. Pt's symptoms are 69% lower than they were at IOP admission per the DSM-5. Pt's anxiety is 78% lower, depression is 75%, and her anger is 67% lower than at IOP admission. Pt has been able to maintain consistent progress for an additional 8 weeks following IOP tx. Issues Still to be Addressed:: self-care, mostly boundary setting and advocating for herself. Additionally, pt can benefit from continuing to practice self-compassion and dialectical thinking. Discharge Recommendations/Instructions:: Pt will follow up with Anne Multani through [facility] for medication management and Jhoana Chester for individual therapy through [facility]. Discharge Handout
--- NOTE | 2025-03-08 16:49 | BH.DS ---
Discharge Summary Demographics Date of Admission:: 01/18/25 Discharge Date: 03/08/25 Presenting Problems at Admission:: Pt was admitted to [facility] level of care due to isolation, depression, and overall anxiety symptoms hindering pt's ability to work and function at her baseline. Pt was admitted to [facility] aftercare to maintain gains made in IOP tx, further reduce symptoms, and improve distress tolerance. Discharge Diagnoses:: Major depressive disorder, recurrent, severe without psychosis F 33.2; Generalized anxiety disorder; ADD; History of bulimia Reason for Discharge:: Pt has accomplished tx goals AEB ability to maintain mood stability and gains made in IOP. Treatment Progress During Treatment & Response: Pt responded well to treatment AEB pt's consistent attendance, ongoing attentiveness and engagement in group discussions, and continued reporting use of skills outside treatment environment. Pt's symptoms are 69% lower than they were at IOP admission per the DSM-5. Pt's anxiety is 78% lower, depression is 75%, and her anger is 67% lower than at IOP admission. Pt has been able to maintain consistent progress for an additional 8 weeks following IOP tx. Issues Still to be Addressed:: self-care, mostly boundary setting and advocating for herself. Additionally, pt can benefit from continuing to practice self-compassion and dialectical thinking. Discharge Recommendations/Instructions:: Pt will follow up with Anne Multani through [facility] for medication management and Jhoana Chester for individual therapy through [facility]. Discharge Handout
== END 2025-03-09 07:23 | disposition home or self-care (01) ==
LOC: BHOG 07:36
PROVIDERS: PCP Nurse Practitioner Family; Referring Provider Psychiatry & Neurology Psychiatry; Visit Provider Psychiatry & Neurology Psychiatry
DX: F33.2 Major depressive disorder, recurrent severe without psychotic features (principal); F41.1 Generalized anxiety disorder; F90.9 Attention-deficit hyperactivity disorder, unspecified type; Z86.59 Personal history of other mental and behavioral disorders
CPT/HCPCS: 90853